=== PATIENT | male | born 1975 | race Hispanic/Latino ===

== ENCOUNTER 2016-12-04 19:38 | Observation (INO) | payer MEDICAID, OTHER ==
[2016-12-04 19:38] VITALS: BMI 24.2
[2016-12-04 20:20] VITALS: O2SAT 97
--- NOTE | 2016-12-04 20:49 | C.PDOC ---
History Of Present Illness A 41 y/o male comes in for ETOH intoxication today. Pt is well known in the ER for multiple visits. Pt denies any physicial complaints, suicidal or homicidal ideation. Time Seen by Provider: 12/04/16 20:48 Chief Complaint (Nursing): Substance Abuse History Per: Patient History/Exam Limitations: no limitations Onset/Duration Of Symptoms: Hrs Current Symptoms Are (Timing): Still Present Suicide/Self Injury Attempted (Context): None Modifying Factor(s): Alcohol Severity: Mild Associated Symptoms: denies: Suicidal Thoughts, Suicidal Plan Involuntary Hold By: None Recent travel outside of the [place]: No Additional History Per: Patient Past Medical History Reviewed: Historical Data, Nursing Documentation, Vital Signs Vital Signs: Last Vital Signs Temp 98.6 F 12/04/16 20:17 Pulse 78 12/04/16 20:17 Resp 20 12/04/16 20:17 BP 130/73 12/04/16 20:17 Pulse Ox 97 12/04/16 20:51 - Medical History PMH: Anxiety, Arthritis (b/l ankle), Depression, Fractures (left leg), Seizures (alcohol related) Denies: HIV, HTN, Chronic Kidney Disease, Sexually Transmitted Disease - [facility] Procedures ALCOHOL DETOXIFICATION (10/30/14) APPLICATION OF SPLINT (03/31/13) CLOSURE SKIN & SUBCUTANEOUS NEC (10/16/14) DETOXIFICATION SERVICES FOR SUBSTANCE ABUSE TREATMENT (08/16/16) INDIV SOCK FOLDER FOR SUBSTANCE ABUSE TREATMENT, PSYCHOEDUCATION (08/16/16) INDIV SOCK FOLDER FOR SUBSTANCE ABUSE, COGNITIVE BEHAVIORAL (08/16/16) INDIVID PSYCHOTHERAP NEC (10/14/14) INJECT/INFUSE NEC (09/30/14) TETANUS TOXOID ADMINIST (10/16/14) Family History: States: Unknown Family Hx - Social History Hx Tobacco Use: Yes Hx Alcohol Use: Yes Hx Substance Use: No - Immunization History Hx Tetanus Toxoid Vaccination: No Hx Influenza Vaccination: No Hx Pneumococcal Vaccination: No Review Of Systems Except As Marked, All Systems Reviewed And Found Negative. Constitutional: Positive for: Other (ETOH intoxication). Negative for: Fever, Chills Gastrointestinal: Negative for: Nausea, Vomiting, Abdominal Pain, Diarrhea Psych: Negative for: Suicidal ideation, Other (Homicidal ideation) Physical Exam - Physical Exam Appears: Non-toxic, No Acute Distress, Other (ETOH intoxicated, (+) AOB. No signs of injury) Skin: Warm, Dry Head: Atraumatic, Normacephalic Eye(s): bilateral: Normal Inspection Oral Mucosa: Moist Throat: Normal, No Exudate Chest: Symmetrical Cardiovascular: Rhythm Regular, No Murmur Respiratory: Normal Breath Sounds, No Rales, No Rhonchi, No Wheezing Gastrointestinal/Abdominal: Soft, No Tenderness Extremity: Normal ROM, No Tenderness, No Pedal Edema, No Deformity Neurological/Psych: Oriented x3, Normal Speech, Normal Cognition, Other (No focal deficit) ED Course And Treatment O2 Sat by Pulse Oximetry: 97 (RA) Pulse Ox Interpretation: Normal Medical Decision Making Medical Decision Making: Impression: 41 y/o male here for ETOH intoxication Plans: ED Obs, reassess ED OBSERVATION Date of observation admission: 12/04/16 Time of observation admission: 20:50 - Observation admission statement Patient is being placed in observation because:: ETOH intoxication - Goals of Observation Goals of observation are:: Sobriety of ETOH Disposition Counseled Patient/Family Regarding: Diagnosis - Disposition Disposition: HOME/ ROUTINE Disposition Time: 05:51 Condition: STABLE - POA Present On Arrival: None - Clinical Impression Clinical Impression: Alcohol intoxication - Scribe Statement The provider has reviewed the documentation as recorded by the Scribe Maxwell arnold All medical record entries made by the Annieibchandra were at my direction and personally dictated by me. I have reviewed the chart and agree that the record accurately reflects my personal performance of the history, physical exam, medical decision making, and the department course for this patient. I have also personally directed, reviewed, and agree with the discharge instructions and disposition.
[2016-12-05 06:27] VITALS: TEMP 98.4
[2016-12-05 06:31] VITALS: BP 143/78; PULSE 90; RESP 20
== END 2016-12-05 05:50 | disposition home or self-care (01) ==
LOC: C.ER 19:38 → C.9OBSV 21:18
PROVIDERS: ADMIT Emergency Medicine; ATTEND Emergency Medicine
DX: F10.120 Alcohol abuse with intoxication, uncomplicated (principal)
CPT/HCPCS: 82948; 99284; G0378

== ENCOUNTER 2017-01-14 23:11 | Emergency (ER) | payer MEDICAID, OTHER ==
[2017-01-14 23:12] VITALS: BMI 25.0
--- NOTE | 2017-01-15 00:03 | C.PDOC ---
History Of Present Illness Patient is a 41 y/o male, homeless, that is brought to the ED for alcohol intoxication. Patient is well known to ED staff for multiple prior visits for intoxication. Patient denies any injury, trauma, or any other physical complaints at this time. Chief Complaint (Nursing): Substance Abuse History Per: Patient History/Exam Limitations: no limitations Onset/Duration Of Symptoms: Gradual Current Symptoms Are (Timing): Still Present Suicide/Self Injury Attempted (Context): None Modifying Factor(s): Alcohol Severity: None Pain Scale Rating Of: 0 Associated Symptoms: denies: Suicidal Thoughts, Suicidal Plan Involuntary Hold By: None Recent travel outside of the [place]: No Additional History Per: Prior Records Past Medical History Reviewed: Historical Data, Nursing Documentation, Vital Signs Vital Signs: Last Vital Signs Temp 97.6 F 01/15/17 05:43 Pulse 69 01/15/17 05:43 Resp 18 01/15/17 05:43 BP 99/58 L 01/15/17 05:43 Pulse Ox 95 01/15/17 05:43 - Medical History PMH: Anxiety, Arthritis (b/l ankle), Depression, Fractures (left leg), Seizures (alcohol related) Denies: HIV, HTN, Chronic Kidney Disease, Sexually Transmitted Disease - [facility] Procedures ALCOHOL DETOXIFICATION (10/30/14) APPLICATION OF SPLINT (03/31/13) CLOSURE SKIN & SUBCUTANEOUS NEC (10/16/14) DETOXIFICATION SERVICES FOR SUBSTANCE ABUSE TREATMENT (08/16/16) INDIV CURBING STONECUTTER FOR SUBSTANCE ABUSE TREATMENT, PSYCHOEDUCATION (08/16/16) INDIV CURBING STONECUTTER FOR SUBSTANCE ABUSE, COGNITIVE BEHAVIORAL (08/16/16) INDIVID PSYCHOTHERAP NEC (10/14/14) INJECT/INFUSE NEC (09/30/14) TETANUS TOXOID ADMINIST (10/16/14) Family History: States: Unknown Family Hx - Social History Hx Tobacco Use: Yes Hx Alcohol Use: Yes Hx Substance Use: No - Immunization History Hx Tetanus Toxoid Vaccination: No Hx Influenza Vaccination: No Hx Pneumococcal Vaccination: No Review Of Systems Except As Marked, All Systems Reviewed And Found Negative. Constitutional: Negative for: Fever, Chills Cardiovascular: Negative for: Chest Pain, Palpitations, Light Headedness Respiratory: Negative for: Cough, Shortness of Breath Gastrointestinal: Negative for: Nausea, Vomiting, Abdominal Pain, Diarrhea Neurological: Negative for: Headache, Dizziness Psych: Negative for: Suicidal ideation Physical Exam - Physical Exam Appears: Non-toxic, No Acute Distress, Unkempt, Other (EtOH on breath) Skin: Normal Color, Warm, Dry Head: Atraumatic, Normacephalic Eye(s): bilateral: Normal Inspection, EOMI Neck: Normal ROM, Supple Chest: Symmetrical Extremity: Normal ROM, No Deformity Extremity: Bilateral: Atraumatic (no signs of injury) Neurological/Psych: Oriented x3, Normal Speech ED Course And Treatment O2 Sat by Pulse Oximetry: 95 (on RA) Pulse Ox Interpretation: Normal ED OBSERVATION Date of observation admission: 01/15/17 Time of observation admission: 00:24 - Observation admission statement Patient is being placed in observation because:: Alcohol intoxication - Goals of Observation Goals of observation are:: Sobriety - Progress Note Progress Note: 01/15/17 00:24 Patient is resting comfortably in bed, no acute distress. 01/15/17 05:07 Patient resting comfortably, denies any complaints. Disposition - Disposition Referrals: [facility] at [facility] [Outside] Disposition: HOME/ ROUTINE Disposition Time: 06:00 Condition: STABLE Instructions: Alcohol Intoxication (GEN), Abuse of Alcohol (ED) - Clinical Impression Clinical Impression: Alcohol abuse with intoxication - Scribe Statement The provider has reviewed the documentation as recorded by the Scribe Danielle Centeno All medical record entries made by the Scribe were at my direction and personally dictated by me. I have reviewed the chart and agree that the record accurately reflects my personal performance of the history, physical exam, medical decision making, and the department course for this patient. I have also personally directed, reviewed, and agree with the discharge instructions and disposition.
[2017-01-15 02:36] VITALS: RESP 18
[2017-01-15 05:07] VITALS: O2SAT 95
[2017-01-15 05:50] VITALS: BP 99/58; PULSE 69; TEMP 97.6
== END 2017-01-15 06:31 | disposition home or self-care (01) ==
LOC: C.ER 23:11
DX: F10.129 Alcohol abuse with intoxication, unspecified (principal); Y90.9 Presence of alcohol in blood, level not specified; Z59.0 Homelessness

== ENCOUNTER 2017-06-01 04:06 | Emergency (ER) | payer MEDICAID, OTHER ==
[2017-06-01 04:06] VITALS: BMI 25.0
[2017-06-01 04:52] VITALS: BP 97/64; PULSE 130; TEMP 98.9; O2SAT 94
--- NOTE | 2017-06-01 05:12 | C.PDOC ---
History Of Present Illness 41 year old male brought in by EMS after being found intoxicated in public. Patient is well known to the ER and has had many prior visits with the same presentation. Denies physical complaints at this time. Chief Complaint (Nursing): Medical Clearance History Per: Patient History/Exam Limitations: no limitations Onset/Duration Of Symptoms: Hrs Current Symptoms Are (Timing): Still Present Recent travel outside of the [place]: No Past Medical History Reviewed: Historical Data, Nursing Documentation, Vital Signs Vital Signs: Last Vital Signs Temp 98.9 F 06/01/17 04:51 Pulse 130 H 06/01/17 04:51 Resp 16 06/01/17 04:51 BP 97/64 L 06/01/17 04:51 Pulse Ox 94 L 06/01/17 06:01 - Medical History PMH: Anxiety, Arthritis (b/l ankle), Depression, Fractures (left leg), Seizures (alcohol related) - [facility] Procedures ALCOHOL DETOXIFICATION (10/30/14) APPLICATION OF SPLINT (03/31/13) CLOSURE SKIN & SUBCUTANEOUS NEC (10/16/14) DETOXIFICATION SERVICES FOR SUBSTANCE ABUSE TREATMENT (08/16/16) INDIV RESPIRATORY THERAPIST FOR SUBSTANCE ABUSE TREATMENT, PSYCHOEDUCATION (08/16/16) INDIV RESPIRATORY THERAPIST FOR SUBSTANCE ABUSE, COGNITIVE BEHAVIORAL (08/16/16) INDIVID PSYCHOTHERAP NEC (10/14/14) INJECT/INFUSE NEC (09/30/14) TETANUS TOXOID ADMINIST (10/16/14) Family History: States: Unknown Family Hx - Social History Hx Tobacco Use: Yes Hx Alcohol Use: Yes Hx Substance Use: No - Immunization History Hx Tetanus Toxoid Vaccination: No Hx Influenza Vaccination: No Hx Pneumococcal Vaccination: No Review Of Systems Constitutional: Negative for: Fever, Chills Gastrointestinal: Negative for: Nausea, Vomiting, Diarrhea Physical Exam - Physical Exam Appears: Non-toxic, No Acute Distress, Other (ETOH on breath) Skin: Normal Color, Warm, Dry Head: Atraumatic, Normacephalic Eye(s): bilateral: Normal Inspection Oral Mucosa: Moist Chest: Symmetrical Cardiovascular: Rhythm Regular Respiratory: Normal Breath Sounds, No Rales, No Rhonchi, No Wheezing Gastrointestinal/Abdominal: Soft, No Tenderness Neurological/Psych: Oriented x3, Normal Speech, Other (No focal deficits) Gait: Steady ED Course And Treatment O2 Sat by Pulse Oximetry: 94 Progress Note: On reevaluation, patient is alert, conscious, oriented x3, and steady of gait; cleared for discharge. Disposition Counseled Patient/Family Regarding: Diagnosis - Disposition Referrals: [facility] at [facility] [Outside] Disposition Time: 06:11 Condition: STABLE Instructions: Abuse of Alcohol (ED) Forms: [employer] ([place]i) - POA Present On Arrival: None - Clinical Impression Clinical Impression: Alcohol intoxication - Scribe Statement The provider has reviewed the documentation as recorded by the Scribchandra Ruiz All medical record entries made by the Scribe were at my direction and personally dictated by me. I have reviewed the chart and agree that the record accurately reflects my personal performance of the history, physical exam, medical decision making, and the department course for this patient. I have also personally directed, reviewed, and agree with the discharge instructions and disposition.
[2017-06-01 07:33] VITALS: RESP 18
== END 2017-06-01 07:26 | disposition home or self-care (01) ==
LOC: C.ER 04:06
DX: F10.129 Alcohol abuse with intoxication, unspecified (principal); Y90.9 Presence of alcohol in blood, level not specified

== ENCOUNTER 2017-06-12 13:29 | Emergency (ER) | payer OTHER ==
[2017-06-12 13:30] VITALS: BMI 25.0
[2017-06-12 15:47] VITALS: BP 101/68; PULSE 125; RESP 18; TEMP 98.9; O2SAT 97
--- NOTE | 2017-06-12 16:15 | C.PDOC ---
History Of Present Illness Pt was BIBSANTY because he was found sleeping outside. Time Seen by Provider: 06/12/17 13:41 Chief Complaint (Nursing): Medical Clearance History Per: Patient, EMS Onset/Duration Of Symptoms: Unknown Current Symptoms Are (Timing): Still Present Severity: Moderate Additional History Per: Prior Records Past Medical History Reviewed: Historical Data, Nursing Documentation, Vital Signs Vital Signs: Last Vital Signs Temp 98.9 F 06/12/17 15:47 Pulse 125 H 06/12/17 15:47 Resp 18 06/12/17 15:47 BP 101/68 06/12/17 15:47 Pulse Ox 97 06/12/17 15:47 - Medical History PMH: Anxiety, Arthritis (b/l ankle), Depression, Fractures (left leg), Seizures (alcohol related) - [facility] Procedures ALCOHOL DETOXIFICATION (10/30/14) APPLICATION OF SPLINT (03/31/13) CLOSURE SKIN & SUBCUTANEOUS NEC (10/16/14) DETOXIFICATION SERVICES FOR SUBSTANCE ABUSE TREATMENT (08/16/16) INDIV WOOD BOAT BUILDER SUPERVISOR FOR SUBSTANCE ABUSE TREATMENT, PSYCHOEDUCATION (08/16/16) INDIV WOOD BOAT BUILDER SUPERVISOR FOR SUBSTANCE ABUSE, COGNITIVE BEHAVIORAL (08/16/16) INDIVID PSYCHOTHERAP NEC (10/14/14) INJECT/INFUSE NEC (09/30/14) TETANUS TOXOID ADMINIST (10/16/14) Family History: States: Unknown Family Hx - Social History Hx Tobacco Use: Yes Hx Alcohol Use: Yes Hx Substance Use: No - Immunization History Hx Tetanus Toxoid Vaccination: No Hx Influenza Vaccination: No Hx Pneumococcal Vaccination: No Review Of Systems Constitutional: Negative for: Fever Cardiovascular: Negative for: Chest Pain Respiratory: Negative for: Shortness of Breath Gastrointestinal: Negative for: Vomiting, Abdominal Pain Musculoskeletal: Negative for: Neck Pain Neurological: Negative for: Weakness Physical Exam - Physical Exam Appears: Non-toxic, No Acute Distress, Unkempt Skin: Normal Color, Warm, Dry Head: Atraumatic, Normacephalic Eye(s): bilateral: PERRL, EOMI Neck: Normal ROM, No Midline Cervical Tenderness, No Step Off Deformity, Supple Chest: Symmetrical, No Deformity Cardiovascular: Rhythm Regular Respiratory: Normal Breath Sounds, No Accessory Muscle Use Gastrointestinal/Abdominal: Soft, No Tenderness Back: No CVA Tenderness Extremity: Normal ROM Neurological/Psych: Oriented x3, Normal Motor, Normal Sensation Gait: Steady ED Course And Treatment O2 Sat by Pulse Oximetry: 97 Pulse Ox Interpretation: Normal Progress Note: Pt took a hot shower in the ED and ate a sandwich. Pt will be given a list of local shelters. Reassessment Condition: Improved Disposition Counseled Patient/Family Regarding: Diagnosis, Need For Followup - Disposition Referrals: [facility] [Outside] Disposition: HOME/ ROUTINE Disposition Time: 16:15 Condition: IMPROVED Additional Instructions: Stay at a homeless half-way. Follow up in the clinic. Return to the ER if you develop worsening of symptoms or if you have any other concerns. Forms: General Discharge Instructions - Clinical Impression Clinical Impression: Homelessness
== END 2017-06-12 17:09 | disposition home or self-care (01) ==
LOC: C.ER 13:29
DX: Z59.0 Homelessness (principal)

== ENCOUNTER 2017-06-17 00:41 | Inpatient (IN) | payer OTHER ==
[2017-06-17 00:41] VITALS: BMI 25.0
[2017-06-17 03:01] LABS: ALB/GLOB RATIO 0.9 (1.0-2.1); ALCOHOL SERUM < 10 mg/dl (0-10); ALKALINE PHOSPHATASE 119 U/L (38-126); ALT/SGPT 45 U/L (21-72); AST/SGOT 53 U/L (17-59); BILIRUBIN,TOTAL 0.6 mg/dL (0.2-1.3); BLOOD UREA NITROGEN 3 mg/dL (9-20); CALCIUM 8.6 mg/dl (8.6-10.4); CARBON DIOXIDE 28 mmol/L (22-30); CHLORIDE 89 mmol/L (98-107); GFR AFRICAN-AMERICAN > 60; GLUCOSE,RANDOM 80 mg/dL (75-110); SODIUM 123 mmol/L (132-148); TOTAL PROTEIN 7.8 g/dL (6.3-8.3)
[2017-06-17 03:13] LABS: BASO # 0.2 K/uL (0.0-0.2); BASO % 1.7 % (0.0-2.0); EOS # 0.1 K/uL (0.0-0.7); EOS % 0.4 % (0.0-4.0); HEMATOCRIT 38.8 % (35.0-51.0); LYMPH # 1.2 K/uL (1.0-4.3); LYMPH % 8.1 % (20.0-40.0); MEAN CELL VOLUME 94.5 fL (80.0-94.0); MEAN CORPUSCULAR HEMOGLOBIN 34.4 pg (27.0-31.0); MEAN CORPUSCULAR HGB CONC 36.4 g/dL (33.0-37.0); MEAN PLATELET VOLUME 6.8 fL (7.2-11.7); MONO # 0.8 K/uL (0.0-0.8); MONO % 5.7 % (0.0-10.0); RED CELL DISTRIBUTION WIDTH 12.4 % (11.5-14.5)
[2017-06-17] MEDS ORDERED: Sodium Chloride 0.9% 1,000 ML IV ONE (03:15)
--- NOTE | 2017-06-17 03:23 | C.PDOC ---
History Of Present Illness 42 year old homeless male brought in by EMS for ETOH abuse. Patient denies complaints at this time. Time Seen by Provider: 06/17/17 01:38 Chief Complaint (Nursing): Substance Abuse History Per: Patient History/Exam Limitations: no limitations Onset/Duration Of Symptoms: Hrs Current Symptoms Are (Timing): Still Present Suicide/Self Injury Attempted (Context): None Modifying Factor(s): Alcohol Involuntary Hold By: None Recent travel outside of the [place]: No Past Medical History Reviewed: Historical Data, Nursing Documentation, Vital Signs Vital Signs: Last Vital Signs Temp 98 F 06/17/17 04:50 Pulse 97 H 06/17/17 04:50 Resp 20 06/17/17 04:50 BP 130/70 06/17/17 04:50 Pulse Ox 98 06/17/17 04:50 - Medical History PMH: Anxiety, Arthritis (b/l ankle), Depression, Fractures (left leg), Seizures (alcohol related) - [facility] Procedures ALCOHOL DETOXIFICATION (10/30/14) APPLICATION OF SPLINT (03/31/13) CLOSURE SKIN & SUBCUTANEOUS NEC (10/16/14) DETOXIFICATION SERVICES FOR SUBSTANCE ABUSE TREATMENT (08/16/16) INDIV MISSILE FACILITIES REPAIRER FOR SUBSTANCE ABUSE TREATMENT, PSYCHOEDUCATION (08/16/16) INDIV MISSILE FACILITIES REPAIRER FOR SUBSTANCE ABUSE, COGNITIVE BEHAVIORAL (08/16/16) INDIVID PSYCHOTHERAP NEC (10/14/14) INJECT/INFUSE NEC (09/30/14) TETANUS TOXOID ADMINIST (10/16/14) Family History: States: Unknown Family Hx - Social History Hx Tobacco Use: Yes Hx Alcohol Use: Yes Hx Substance Use: No - Immunization History Hx Tetanus Toxoid Vaccination: No Hx Influenza Vaccination: No Hx Pneumococcal Vaccination: No Review Of Systems Constitutional: Negative for: Fever, Chills Gastrointestinal: Negative for: Nausea, Vomiting, Abdominal Pain Physical Exam - Physical Exam Appears: Non-toxic, Other (Disheveled, poor hygiene ) Skin: Warm, Dry Head: Atraumatic, Normacephalic Eye(s): bilateral: Normal Inspection Oral Mucosa: Moist Chest: Symmetrical, No Tenderness Cardiovascular: Rhythm Regular Respiratory: Normal Breath Sounds, No Rales, No Rhonchi, No Wheezing Gastrointestinal/Abdominal: Soft, No Tenderness Extremity: No Calf Tenderness, No Swelling, Other (Large area of erythema with positive warmth and old healed abrasions to posterior bilateral thighs from gluteal folds to popliteal area. Scar and chronic discoloration to left ankle, s /p old fracture) Pulses: Left Dorsalis Pedis: Normal, Right Dorsalis Pedis: Normal Neurological/Psych: Oriented x3, Normal Speech, Normal Motor, Normal Sensation Gait: Steady ED Course And Treatment - Laboratory Results Result Diagrams: 06/17/17 02:44 06/17/17 02:44 O2 Sat by Pulse Oximetry: 98 (room air) Pulse Ox Interpretation: Normal Progress Note: Blood work ordered, results showed sodium levels of 123 and wbc of 14.5. Patient started on IV fluids and IV antibiotics. Discussed with Dr. Dallas, hospitalist distribution tech, who will admit patient. Disposition - Disposition Disposition: HOSPITALIZED - PA / CLIENT TECHNOLOGIES ANALYST / Resident Statement MD/DO has reviewed & agrees with the documentation as recorded. - Scribe Statement The provider has reviewed the documentation as recorded by the Scribe Ricky Ruiz All medical record entries made by the Scribe were at my direction and personally dictated by me. I have reviewed the chart and agree that the record accurately reflects my personal performance of the history, physical exam, medical decision making, and the department course for this patient. I have also personally directed, reviewed, and agree with the discharge instructions and disposition.
[2017-06-17 03:26] LABS: PLATELET COUNT 510 K/uL (130-400); WHITE BLOOD COUNT 14.5 K/uL (4.8-10.8)
[2017-06-17 03:27] LABS: BASOPHIL 1 % (0-2); EOSINOPHIL 1 % (0-4); NEUTROPHIL 83 % (50-75); TOTAL CELLS COUNTED 100
[2017-06-17] MEDS ORDERED: Sodium Chloride 0.9% 1,000 ML IV STA (03:31)
[2017-06-17] MEDS ORDERED: Piperacillin/Tazobact 3.375 gm 100 ML IV STA (03:34)
[2017-06-17] MEDS ORDERED: Vancomycin 1 gm/NS 200 ml 1 GM/200 ML BAG IVPB STA (03:47)
[2017-06-17] MEDS ORDERED: Sodium Chloride 0.9% 1,000 ML ONE (03:49)
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
[2017-06-17] MEDS: Sodium Chloride 0.9% 1,000 ML IV SCH ×3 (06:46→22:18)
--- NOTE | 2017-06-17 07:04 | CP.PCM.PN ---
<Kristin Werner - Last Filed: 06/17/17 15:34> Subjective - Date & Time of Evaluation Date of Evaluation: 06/17/17 Time of Evaluation: 07:04 - Subjective Subjective: Medicine Progress Note for Dr. Morales Patient was seen and examined at bedside in no acute distress. Patient reports having "pain all over his body". Patient denies having shortness of breath, abdominal pain, nausea, vomiting, fevers. Patient states he is no hallucinating or having tremors. Patient is slightly agitated and does not want to be questioned. Objective - Vital Signs/Intake and Output Vital Signs (last 24 hours): Temp Pulse Resp BP Pulse Ox 97.5 F L 109 H 20 115/67 98 06/17/17 05:20 06/17/17 05:20 06/17/17 05:20 06/17/17 05:20 06/17/17 05:29 - Medications Medications: Current Medications Acetaminophen (Tylenol 325mg Tab) 650 mg PO Q6 PRN PRN Reason: Fever >100.4 F Chlordiazepoxide (Librium) 15 mg PO Q8 PRN PRN Reason: Symptoms of alcohol withdrawl Enoxaparin Sodium (Lovenox) 40 mg SC DAILY [facility] Folic Acid (Folic Acid) 1 mg PO DAILY [facility] Sodium Chloride (Sodium Chloride 0.9%) 1,000 mls @ 200 mls/hr IV .Q5H STA Stop: 06/17/17 08:30 Last Admin: 06/17/17 03:56 Dose: 200 mls/hr Ceftriaxone Sodium 1 gm/ (Sodium Chloride) 100 mls @ 200 mls/hr IVPB Q12H [facility] Last Admin: 06/17/17 07:02 Dose: 200 mls/hr Doxycycline Hyclate 100 mg/ (Sodium Chloride) 100 mls @ 100 mls/hr IVPB Q12H [facility] Sodium Chloride (Sodium Chloride 0.9%) 1,000 mls @ 125 mls/hr IV .Q8H [facility] Last Admin: 06/17/17 06:46 Dose: Not Given Lorazepam (Ativan) 1 mg PO Q4 PRN PRN Reason: Anxiety Multivitamins (Hexavitamin) 1 tab PO DAILY [facility] Pantoprazole Sodium (Protonix Ec Tab) 20 mg PO DAILY [facility] Phenytoin Sodium (Dilantin) 100 mg PO TID [facility] Thiamine HCl (Vitamin B1 Tab) 50 mg PO DAILY PEMA - Labs Labs: 06/17/17 02:44 06/17/17 02:44 - Head Exam Head Exam: ATRAUMATIC, NORMAL INSPECTION - Eye Exam Eye Exam: EOMI, Normal appearance - ENT Exam ENT Exam: Mucous Membranes Moist - Respiratory Exam Respiratory Exam: Decreased Breath Sounds, NORMAL BREATHING PATTERN. absent: Rales, Rhonchi, Wheezes, Respiratory Distress - Cardiovascular Exam Cardiovascular Exam: REGULAR RHYTHM, +S1, +S2 - GI/Abdominal Exam GI & Abdominal Exam: Soft, Normal Bowel Sounds. absent: Distended, Firm, Tenderness - Extremities Exam Extremities Exam: absent: Calf Tenderness, Normal Inspection, Pedal Edema Additional comments: Chronic skin color changes and contact dermatitis from gluteal region extending down to knees bilaterally; right lateral hip and thigh- abrasion, erythema; , erythema and feces noted in intergluteal cleft; scabs bilateral ankles; poor feet and nail hygiene - Neurological Exam Neurological Exam: Alert, Awake - Psychiatric Exam Psychiatric exam: Agitated - Skin Skin Exam: Dry, Intact, Warm. absent: Normal Color Assessment and Plan (1) Dermatitis Assessment & Plan: Likley contact dermatitis over buttocks and lower extremities bilaterally * May progress to cellulitis due to abrasions and poor hygiene * Continue Rocephin and Doxycycline * Continue proper hygiene and skin care * Follow up stool studies. [patient was soiled with urine/feces in ED] Status: Acute (2) Hyponatremia Assessment & Plan: Likely secondary to alcohol abuse * Continue IV fluids; will monitor on morning labs. If Na continues to trend down, will discontinue IV fluids * Encourage patient to eat to improve electrolytes and malnutrition. * Follow up serum and urine osmolality Status: Acute (3) Alcoholism Assessment & Plan: Patient has a history of alcohol abuse. * Alcohol quant: <10 * No signs of withdrawal. If patient develops symptoms, Librium PRN is ordered. Status: Acute (4) Tobacco abuse Assessment & Plan: Continue nicoderm patch Status: Acute (5) Seizure disorder Assessment & Plan: Patient has a history of seizures, however, does not take medications. May be secondary to alcohol abuse Seizure precautions Status: Acute (6) Prophylactic measure Assessment & Plan: Lovenox 40mg SC Protonix 20mg PO daily Seizure precautions Status: Acute <Selvin Morales - Last Filed: 06/17/17 16:54> Objective - Vital Signs/Intake and Output Vital Signs (last 24 hours): Temp Pulse Resp BP Pulse Ox 99 F 108 H 20 108/68 98 06/17/17 15:00 06/17/17 15:00 06/17/17 15:00 06/17/17 15:00 06/17/17 15:00 Intake and Output: 06/17/17 06/17/17 06:59 18:59 Intake Total 800 Output Total 850 Balance -50 - Medications Medications: Current Medications Acetaminophen (Tylenol 325mg Tab) 650 mg PO Q6 PRN PRN Reason: Fever >100.4 F Chlordiazepoxide (Librium) 15 mg PO Q8 PRN PRN Reason: Symptoms of alcohol withdrawl Enoxaparin Sodium (Lovenox) 40 mg SC DAILY [facility] Last Admin: 06/17/17 09:44 Dose: 40 mg Folic Acid (Folic Acid) 1 mg PO DAILY [facility] Last Admin: 06/17/17 09:45 Dose: 1 mg Ceftriaxone Sodium 1 gm/ (Sodium Chloride) 100 mls @ 200 mls/hr IVPB Q12H [facility] Last Admin: 06/17/17 07:02 Dose: 200 mls/hr Doxycycline Hyclate 100 mg/ (Sodium Chloride) 100 mls @ 100 mls/hr IVPB Q12H [facility] Last Admin: 06/17/17 07:54 Dose: 100 mls/hr Sodium Chloride (Sodium Chloride 0.9%) 1,000 mls @ 125 mls/hr IV .Q8H [facility] Last Admin: 06/17/17 14:11 Dose: 125 mls/hr Lorazepam (Ativan) 1 mg PO Q4 PRN PRN Reason: Anxiety Multivitamins (Hexavitamin) 1 tab PO DAILY [facility] Last Admin: 06/17/17 09:45 Dose: 1 tab Pantoprazole Sodium (Protonix Ec Tab) 20 mg PO DAILY [facility] Last Admin: 06/17/17 10:59 Dose: 20 mg Phenytoin Sodium (Dilantin) 100 mg PO TID [facility] Last Admin: 06/17/17 13:52 Dose: 100 mg Thiamine HCl (Vitamin B1 Tab) 50 mg PO DAILY [facility] Last Admin: 06/17/17 09:46 Dose: 50 mg - Labs Labs: 06/17/17 02:44 06/17/17 02:44 Attending/Attestation - Attestation I have personally seen and examined this patient.: Yes I have fully participated in the care of the patient.: Yes I have reviewed all pertinent clinical information, including history, physical exam and plan: Yes Notes (Text): Medical attending: Patient was was seen and examined by me as well, agrees the above note by medical coding instructor. The patient was sleeping when we came and saw him. From my discussion with the medical residents he was somewhat agitated when they came earlier to talk and examine the patient. By the time we rounded with the medical residents he was not agitated and was cooperative during our exam It appears that he's been homeless for quite some time he is very disheveled appearance. He is also extremely emaciated as well. I had him turn around and we examined his sacral area as well as his femoral areas. He does not have any open wounds. There is certainly a lot of erythema however it does not appear to be a cellulitis picture more of a contact dermatitis From what I'm being told when he first was brought to the emergency room and he was examined he was seen to have a lot of urine and feces in this area. It's possible that he has not been cleaning. My other thought was could the skin areas that we are looking at represents some type of frostbite - however I do not think that's the case since when I inspected his fingers and toes he does not have any areas look like frostbite and normally with frostbite it should affected digits heavily. This being said he does appear to have some fungal/onychomycosis of his fingernails and toes. The previous nights medical team put the patient on antibiotics will continue this for the time being. We'll monitor his vital signs as well as temperature and also his serum white blood cell counts. If these remain stable we'll consider stopping antibiotics later on Also his sodium level is 123 this is probably a reflection of the patient's large alcohol intake as well as poor malnutrition. He was placed on normal saline, will get a follow his sodium to see how this does. It should improve with him eating we encouraged him to eat. thank you Selvin Morales
[2017-06-17] MEDS ORDERED: Pneumococcal 23-Valent Vaccine IM ONE (07:28)
[2017-06-17] MEDS: Enoxaparin 40 mg Syringe SC SCH (09:44)
[2017-06-17] MEDS: Multiple Vitamins Tab PO SCH (09:45)
[2017-06-17] MEDS: Pantoprazole 20 mg EC Tab PO SCH (10:59)
[2017-06-17] MEDS ORDERED: Piperacillin/Tazobact 3.375 GM in Sodium Chloride 100 ML IVPB SCH (12:15)
[2017-06-17 16:08] VITALS: RESP 20
[2017-06-17] MEDS ORDERED: Vancomycin 1 gm/NS 200 ml 1 GM/200 ML BAG IVPB SCH (16:40)
[2017-06-18] MEDS: Sodium Chloride 0.9% 1,000 ML IV SCH ×2 (06:58→12:03)
--- NOTE | 2017-06-18 07:01 | CP.PCM.PN ---
<Kristin Werner - Last Filed: 06/18/17 10:49> Subjective - Date & Time of Evaluation Date of Evaluation: 06/18/17 Time of Evaluation: 07:01 - Subjective Subjective: Medicine Progress Note for Dr. Morales Patient was seen and examined at bedside. Patient was agitated and did not want to answer questions or cooperate. He reports he still has leg pain and states he tried walking to the window but was unable to due to pain. Patient denies having shortness of breath, abdominal pain, nausea, vomiting, fevers. Patient states he is no hallucinating or having tremors. Patient was later revisited with attending, Dr. Morales, and was pleasant and in no acute distress. He reports feeling better, however, still has pain in his legs. Objective - Vital Signs/Intake and Output Vital Signs (last 24 hours): Temp Pulse Resp BP Pulse Ox 99 F 93 H 20 110/64 96 06/18/17 00:00 06/18/17 00:00 06/18/17 00:00 06/18/17 00:00 06/18/17 00:00 Intake and Output: 06/18/17 06/18/17 06:59 18:59 Intake Total 1800 Balance 1800 - Medications Medications: Current Medications Acetaminophen (Tylenol 325mg Tab) 650 mg PO Q6 PRN PRN Reason: Fever >100.4 F Chlordiazepoxide (Librium) 15 mg PO Q8 PRN PRN Reason: Symptoms of alcohol withdrawl Enoxaparin Sodium (Lovenox) 40 mg SC DAILY [facility] Last Admin: 06/17/17 09:44 Dose: 40 mg Folic Acid (Folic Acid) 1 mg PO DAILY [facility] Last Admin: 06/17/17 09:45 Dose: 1 mg Ceftriaxone Sodium 1 gm/ (Sodium Chloride) 100 mls @ 200 mls/hr IVPB Q12H [facility] Last Admin: 06/18/17 06:47 Dose: 200 mls/hr Doxycycline Hyclate 100 mg/ (Sodium Chloride) 100 mls @ 100 mls/hr IVPB Q12H [facility] Last Admin: 06/17/17 19:05 Dose: 100 mls/hr Sodium Chloride (Sodium Chloride 0.9%) 1,000 mls @ 125 mls/hr IV .Q8H [facility] Last Admin: 06/18/17 06:58 Dose: 125 mls/hr Lorazepam (Ativan) 1 mg PO Q4 PRN PRN Reason: Anxiety Multivitamins (Hexavitamin) 1 tab PO DAILY [facility] Last Admin: 06/17/17 09:45 Dose: 1 tab Pantoprazole Sodium (Protonix Ec Tab) 20 mg PO DAILY [facility] Last Admin: 06/17/17 10:59 Dose: 20 mg Phenytoin Sodium (Dilantin) 100 mg PO TID [facility] Last Admin: 06/17/17 17:41 Dose: 100 mg Thiamine HCl (Vitamin B1 Tab) 50 mg PO DAILY [facility] Last Admin: 06/17/17 09:46 Dose: 50 mg - Labs Labs: 06/17/17 02:44 06/17/17 02:44 - Additional Findings Additional findings: - Head Exam Head Exam: ATRAUMATIC, NORMAL INSPECTION - Eye Exam Eye Exam: EOMI, Normal appearance - ENT Exam ENT Exam: Mucous Membranes Moist - Respiratory Exam Respiratory Exam: Decreased Breath Sounds, NORMAL BREATHING PATTERN. absent: Rales, Rhonchi, Wheezes, Respiratory Distress - Cardiovascular Exam Cardiovascular Exam: REGULAR RHYTHM, +S1, +S2 - GI/Abdominal Exam GI & Abdominal Exam: Soft, Normal Bowel Sounds. absent: Distended, Firm, Tenderness - Extremities Exam Extremities Exam: absent: Calf Tenderness, Normal Inspection, Pedal Edema Additional comments: Chronic skin color changes and contact dermatitis from gluteal region extending down to knees bilaterally; right lateral hip and thigh- abrasion, erythema; , erythema and feces noted in intergluteal cleft; scabs bilateral ankles; poor feet and nail hygiene - Neurological Exam Neurological Exam: Alert, Awake - Psychiatric Exam Psychiatric exam: Agitated - Skin Skin Exam: Dry, Intact, Warm. absent: Normal Color Assessment and Plan (1) Dermatitis Status: Acute (2) Hyponatremia Status: Acute (3) Alcoholism Status: Acute (4) Tobacco abuse Status: Acute (5) Seizure disorder Status: Acute (6) Leg pain, bilateral Status: Acute (7) Prophylactic measure Status: Acute - Assessment and Plan (Free Text) Plan: Assessment and Plan (1) Dermatitis Assessment & Plan: Kia contact dermatitis over buttocks and lower extremities bilaterally * May progress to cellulitis due to abrasions and poor hygiene * Continue Rocephin and Doxycycline * Continue proper hygiene and skin care * Follow up stool studies. [patient was soiled with urine/feces in ED] Status: Acute (2) Hyponatremia Assessment & Plan: Likely secondary to alcohol abuse * Improving--> Na 131 on 06/18 (123 at admission) * Continue IV fluids; decreased rate from 125mls/hr to 75mls/hr on 06/18 * Will monitor on morning labs. If Na continues to trend down, will discontinue IV fluids * Encourage patient to eat to improve electrolytes and malnutrition. * Urine random sodium 15 * Urine osmolality 142 Status: Acute (3) Alcoholism Assessment & Plan: Patient has a history of alcohol abuse. * Alcohol quant: <10 * No signs of withdrawal. If patient develops symptoms, Librium PRN is ordered. Status: Acute (4) Tobacco abuse Assessment & Plan: Continue nicoderm patch Status: Acute (5) Seizure disorder Assessment & Plan: Patient has a history of seizures, however, does not take medications. May be secondary to alcohol abuse Seizure precautions Status: Acute (6) Leg pain, bilateral Assessment & Plan: Likely secondary to contact dermatitis from soiling self and sitting all day ( as reported by patient). * Venous dopplers B/L: f/u results * Hip Xray B/L: f/u results * Knee Xray B/L: f/u results * PT/OT, OOB (7) Prophylactic measure Assessment & Plan: Lovenox 40mg SC Protonix 20mg PO daily Seizure precautions PT/OT High protein regular diet <Selvin Morales H - Last Filed: 06/18/17 11:42> Objective - Vital Signs/Intake and Output Vital Signs (last 24 hours): Temp Pulse Resp BP Pulse Ox 98 F 93 H 20 100/67 97 06/18/17 07:57 06/18/17 07:57 06/18/17 07:57 06/18/17 07:57 06/18/17 07:57 Intake and Output: 06/18/17 06/18/17 06:59 18:59 Intake Total 3100 Output Total 700 Balance 2400 - Medications Medications: Current Medications Acetaminophen (Tylenol 325mg Tab) 650 mg PO Q6 PRN PRN Reason: Fever >100.4 F Chlordiazepoxide (Librium) 15 mg PO Q8 PRN PRN Reason: Symptoms of alcohol withdrawl Enoxaparin Sodium (Lovenox) 40 mg SC DAILY [facility] Last Admin: 06/17/17 09:44 Dose: 40 mg Folic Acid (Folic Acid) 1 mg PO DAILY [facility] Last Admin: 06/18/17 09:12 Dose: 1 mg Ceftriaxone Sodium 1 gm/ (Sodium Chloride) 100 mls @ 200 mls/hr IVPB Q12H [facility] Last Admin: 06/18/17 06:47 Dose: 200 mls/hr Doxycycline Hyclate 100 mg/ (Sodium Chloride) 100 mls @ 100 mls/hr IVPB Q12H [facility] Last Admin: 06/18/17 08:00 Dose: 100 mls/hr Sodium Chloride (Sodium Chloride 0.9%) 1,000 mls @ 75 mls/hr IV .[id number] [facility] Lorazepam (Ativan) 1 mg PO Q4 PRN PRN Reason: Anxiety Multivitamins (Hexavitamin) 1 tab PO DAILY [facility] Last Admin: 06/18/17 09:13 Dose: 1 tab Nicotine (Nicoderm Cq) 1 patch TD DAILY [facility] Pantoprazole Sodium (Protonix Ec Tab) 20 mg PO DAILY [facility] Last Admin: 06/18/17 09:13 Dose: 20 mg Phenytoin Sodium (Dilantin) 100 mg PO TID [facility] Last Admin: 06/18/17 09:12 Dose: 100 mg Thiamine HCl (Vitamin B1 Tab) 50 mg PO DAILY [facility] Last Admin: 06/18/17 09:13 Dose: 50 mg - Labs Labs: 06/18/17 07:13 06/18/17 07:13 Attending/Attestation - Attestation I have personally seen and examined this patient.: Yes I have fully participated in the care of the patient.: Yes I have reviewed all pertinent clinical information, including history, physical exam and plan: Yes Notes (Text): 06/18/17 11:42 Medical attending: I reviewed the above note by the pediatrician/medical doctor, I also came and examined the patient with the resident and agree with the above. The patient earlier this morning was very agitated and noncooperative when he was seen by the medical residents. Later on in the morning when I came to around the residence he was no longer agitated and he was cooperative. He reports that he has a lot of weakness difficulty ambulating to the bathroom. We'll try placing an bedside commode. Because of the weakness were also consult PT. We'll also x-ray imaging of the hip and knees With regards to his low-sodium this is come up nicely, work is slow the rate of intravenous fluids now. We've also encouraged him to continue eating as well. He states that he's been having a good appetite Thank you very much Selvin Morales
[2017-06-18 07:59] LABS: ALB/GLOB RATIO 1.2 (1.0-2.1); ALKALINE PHOSPHATASE 80 U/L (38-126); ALT/SGPT 34 U/L (21-72); AST/SGOT 43 U/L (17-59); BILIRUBIN,TOTAL 0.5 mg/dL (0.2-1.3); BLOOD UREA NITROGEN 5 mg/dL (9-20); CALCIUM 7.8 mg/dl (8.6-10.4); CARBON DIOXIDE 27 mmol/L (22-30); CHLORIDE 101 mmol/L (98-107); GFR AFRICAN-AMERICAN > 60; GLUCOSE,RANDOM 85 mg/dL (75-110); POTASSIUM 3.8 mmol/L (3.6-5.2); SODIUM 131 mmol/L (132-148); TOTAL PROTEIN 5.4 g/dL (6.3-8.3)
[2017-06-18 08:10] LABS: BASO # 0.1 K/uL (0.0-0.2); BASO % 1.2 % (0.0-2.0); EOS # 0.1 K/uL (0.0-0.7); LYMPH # 1.8 K/uL (1.0-4.3); LYMPH % 26.8 % (20.0-40.0); MEAN CORPUSCULAR HEMOGLOBIN 33.8 pg (27.0-31.0); MEAN CORPUSCULAR HGB CONC 34.4 g/dL (33.0-37.0); MEAN PLATELET VOLUME 7.1 fL (7.2-11.7); MONO # 0.8 K/uL (0.0-0.8); MONO % 11.7 % (0.0-10.0); NRBC % 0.1 % (0.0-2.0); RED CELL DISTRIBUTION WIDTH 12.7 % (11.5-14.5)
[2017-06-18 08:13] LABS: MEAN CELL VOLUME 98.2 fL (80.0-94.0); WHITE BLOOD COUNT 6.7 K/uL (4.8-10.8)
[2017-06-18] MEDS: Multiple Vitamins Tab PO SCH (09:13)
[2017-06-18] MEDS: Pantoprazole 20 mg EC Tab PO SCH (09:13)
[2017-06-18] MEDS: Enoxaparin 40 mg Syringe SC SCH (11:01)
[2017-06-19] MEDS: Sodium Chloride 0.9% 1,000 ML IV SCH ×3 (00:15→13:25)
--- NOTE | 2017-06-19 06:58 | CP.PCM.PN ---
Subjective - Date & Time of Evaluation Date of Evaluation: 06/19/17 Time of Evaluation: 06:58 Objective - Vital Signs/Intake and Output Vital Signs (last 24 hours): Temp Pulse Resp BP Pulse Ox 98.7 F 91 H 20 121/67 98 06/19/17 00:00 06/19/17 00:00 06/19/17 00:00 06/19/17 00:00 06/19/17 00:00 Intake and Output: 06/18/17 06/19/17 18:59 06:59 Intake Total 1600 2475 Output Total 800 850 Balance 800 1625 - Medications Medications: Current Medications Acetaminophen (Tylenol 325mg Tab) 650 mg PO Q6 PRN PRN Reason: Fever >100.4 F Chlordiazepoxide (Librium) 15 mg PO Q8 PRN PRN Reason: Symptoms of alcohol withdrawl Enoxaparin Sodium (Lovenox) 40 mg SC DAILY [facility] Last Admin: 06/18/17 11:01 Dose: 40 mg Folic Acid (Folic Acid) 1 mg PO DAILY [facility] Last Admin: 06/18/17 09:12 Dose: 1 mg Ceftriaxone Sodium 1 gm/ (Sodium Chloride) 100 mls @ 200 mls/hr IVPB Q12H [facility] Last Admin: 06/19/17 06:46 Dose: 200 mls/hr Doxycycline Hyclate 100 mg/ (Sodium Chloride) 100 mls @ 100 mls/hr IVPB Q12H [facility] Last Admin: 06/18/17 19:24 Dose: 100 mls/hr Sodium Chloride (Sodium Chloride 0.9%) 1,000 mls @ 75 mls/hr IV .[id number] [facility] Last Admin: 06/19/17 00:15 Dose: Not Given Lorazepam (Ativan) 1 mg PO Q4 PRN PRN Reason: Anxiety Multivitamins (Hexavitamin) 1 tab PO DAILY [facility] Last Admin: 06/18/17 09:13 Dose: 1 tab Nicotine (Nicoderm Cq) 1 patch TD DAILY [facility] Last Admin: 06/18/17 11:59 Dose: 1 patch Pantoprazole Sodium (Protonix Ec Tab) 20 mg PO DAILY [facility] Last Admin: 06/18/17 09:13 Dose: 20 mg Phenytoin Sodium (Dilantin) 100 mg PO TID [facility] Last Admin: 06/18/17 18:04 Dose: 100 mg Thiamine HCl (Vitamin B1 Tab) 50 mg PO DAILY [facility] Last Admin: 06/18/17 09:13 Dose: 50 mg - Labs Labs: 06/18/17 07:13 06/18/17 07:13 Assessment and Plan (1) Dermatitis Status: Acute (2) Hyponatremia Status: Acute (3) Alcoholism Status: Acute (4) Tobacco abuse Status: Acute (5) Seizure disorder Status: Acute (6) Leg pain, bilateral Status: Acute (7) Prophylactic measure Status: Acute
[2017-06-19 07:16] LABS: BASO # 0.1 K/uL (0.0-0.2); BASO % 1.1 % (0.0-2.0); EOS # 0.1 K/uL (0.0-0.7); EOS % 1.8 % (0.0-4.0); HEMATOCRIT 38.2 % (35.0-51.0); MEAN CORPUSCULAR HEMOGLOBIN 32.5 pg (27.0-31.0); MEAN CORPUSCULAR HGB CONC 33.2 g/dL (33.0-37.0); MEAN PLATELET VOLUME 6.7 fL (7.2-11.7); MONO # 0.9 K/uL (0.0-0.8); MONO % 10.4 % (0.0-10.0); NRBC % 0.1 % (0.0-2.0); RED CELL DISTRIBUTION WIDTH 12.8 % (11.5-14.5); WHITE BLOOD COUNT 8.3 K/uL (4.8-10.8)
[2017-06-19 07:37] LABS: ALB/GLOB RATIO 1.2 (1.0-2.1); ALKALINE PHOSPHATASE 84 U/L (38-126); ALT/SGPT 36 U/L (21-72); AST/SGOT 29 U/L (17-59); BILIRUBIN,TOTAL 0.4 mg/dL (0.2-1.3); BLOOD UREA NITROGEN 7 mg/dL (9-20); CARBON DIOXIDE 27 mmol/L (22-30); CHLORIDE 97 mmol/L (98-107); GFR AFRICAN-AMERICAN > 60; GLUCOSE,RANDOM 88 mg/dL (75-110); POTASSIUM 3.9 mmol/L (3.6-5.2); SODIUM 130 mmol/L (132-148); TOTAL PROTEIN 5.8 g/dL (6.3-8.3)
--- NOTE | 2017-06-19 09:14 | RAD ---
PROCEDURE: Bilateral knees dated 06/18/2017. HISTORY: Leg pain. COMPARISON: No prior studies available for comparison FINDINGS: BONES: The current study reveals in proximal margins of fixation rods within the tibiae. Hardware appears intact. No evidence of loosening or infection. No evidence of acute displaced fracture nor dislocation however old healed fracture deformity right proximal fibula present. . The osseous structures appear intact. Joint spaces are relatively preserved. Mild diffuse demineralization. IMPRESSION: No evidence of acute displaced fracture nor dislocation. Old healed fracture deformity right proximal tibia. In situ bilateral fixation rods the both tibiae. . No evidence of hardware failure. Mild diffuse demineralization.
[2017-06-19] MEDS ORDERED: Pneumococcal 23-Valent Vaccine IM ONE ×3 (10:00→15:00)
[2017-06-19] MEDS ORDERED: Influenza Vaccine 60 mcg/0.5 mL SYR (4YR UP) IM ONE ×2 (10:00→15:00)
--- NOTE | 2017-06-19 10:20 | VASCLAB ---
PROCEDURE: Lower Extremity Venous Duplex Exam. HISTORY: leg pain PRIORS: None. TECHNIQUE: Bilateral common femoral, femoral, popliteal and posterior tibial, peroneal and great saphenous veins were evaluated. Flow was assessed with color Doppler, compressibility, assessment of phasic flow and augmentation response. Report prepared by LEX Santos, RVT FINDINGS: RIGHT: 1. Common Femoral Vein: 1.1. Compressibility - Fully compressible: Thrombus - None : Flow - Phasic: Augmentation -Normal: Reflux - None. 2. Femoral Vein: 2.1. Compressibility - Fully compressible: Thrombus - None : Flow - Phasic: Augmentation -Normal: Reflux - None. 3. Popliteal Vein: 3.1. Compressibility - Fully compressible: Thrombus - None : Flow - Phasic: Augmentation -Normal: Reflux - None. 4. Posterior Tibial Vein: 4.1. Compressibility - Fully compressible: Thrombus - None: Flow - Phasic: Augmentation -Normal: Reflux - None. 5. Peroneal Vein: 5.1. Compressibility - Fully compressible: Thrombus - None: Flow - Phasic: Augmentation -Normal: Reflux - None. 6. Great Saphenous Vein: 6.1. Compressibility - Fully compressible: Thrombus - None: Flow - Phasic: Augmentation - Normal: Reflux - None. LEFT: 1. Common Femoral Vein: 1.1. Compressibility - Fully compressible: Thrombus - None: Flow - Phasic: Augmentation -Normal: Reflux - None. 2. Femoral Vein: 2.1. Compressibility - Fully compressible: Thrombus - None: Flow - Phasic: Augmentation -Normal: Reflux - None. 3. Popliteal Vein: 3.1. Compressibility - Fully compressible: Thrombus - None : Flow - Phasic: Augmentation -Normal: Reflux - None. 4. Posterior Tibial Vein: 4.1. Compressibility - Fully compressible: Thrombus - None: Flow - Phasic: Augmentation -Normal: Reflux - None. 5. Peroneal Vein: 5.1. Compressibility - Fully compressible: Thrombus - None: Flow - Phasic: Augmentation -Normal: Reflux - None. 6. Great Saphenous Vein: 6.1. Compressibility - Fully compressible: Thrombus - None: Flow - Phasic: Augmentation - Normal: Reflux - None. OTHER FINDINGS: Right: None significant. Left: None significant. IMPRESSION: Right: No evidence of deep or superficial vein thrombosis of the right lower extremity. Normal valve function noted of the right side. Left: No evidence of deep or superficial vein thrombosis of the left lower extremity. Normal valve function noted of the left side.
[2017-06-19] MEDS: Multiple Vitamins Tab PO SCH (10:47)
[2017-06-19] MEDS: Pantoprazole 20 mg EC Tab PO SCH (10:47)
[2017-06-19] MEDS: Enoxaparin 40 mg Syringe SC SCH (10:48)
--- NOTE | 2017-06-19 10:54 | RAD ---
PROCEDURE: Pelvis and bilateral hips. AP views of the the pelvis with hips in the AP and frogleg lateral positions performed. History: Leg pain. COMPARISON: No prior study available for comparison FINDINGS: BONES: No evidence of acute displaced fracture nor dislocation. The osseous structures appear intact. Both femoral heads are appropriately located within the respective acetabula. Minimal spurring along the superolateral margins of both acetabular roofs more so on the right side. Joint spaces are relatively preserved. Spectral sclerotic changes seen along the inferior margins of both intertrochanteric regions likely representing a variation in the trabecular pattern rather than true sclerotic lesions. Minor on sclerosis both SI joints left greater than right IMPRESSION: No evidence of acute displaced fracture nor dislocation as described. Minimal spurring along the superolateral margins of both acetabular roofs right slightly more so than left.
--- NOTE | 2017-06-19 11:46 | CP.PCM.DIS ---
<Kristin Werner - Last Filed: 06/19/17 19:52> Provider - Provider Date of Admission: 06/17/17 04:31 Attending physician: Ruddy Dallas MD Time Spent in preparation of Discharge (in minutes): 45 Diagnosis - Discharge Diagnosis (1) Dermatitis Status: Acute (2) Hyponatremia Status: Acute (3) Alcoholism Status: Acute (4) Tobacco abuse Status: Acute (5) Seizure disorder Status: Acute (6) Leg pain, bilateral Status: Acute (7) Prophylactic measure Status: Acute Hospital Course - Lab Results Lab Results: Micro Results 06/19/17 00:59 Stool Ova and Parasite Concentrate Exam - Final Most Recent Lab Values WBC 8.3 K/uL (4.8-10.8) 06/19/17 07:05 RBC 3.90 Mil/uL (4.40-5.90) L 06/19/17 07:05 Hgb 12.7 g/dL (12.0-18.0) 06/19/17 07:05 Hct 38.2 % (35.0-51.0) 06/19/17 07:05 MCV 98.0 fL (80.0-94.0) H 06/19/17 07:05 MCH 32.5 pg (27.0-31.0) H 06/19/17 07:05 MCHC 33.2 g/dL (33.0-37.0) 06/19/17 07:05 RDW 12.8 % (11.5-14.5) 06/19/17 07:05 Plt Count 470 K/uL (130-400) H 06/19/17 07:05 MPV 6.7 fL (7.2-11.7) L 06/19/17 07:05 Neut % (Auto) 62.7 % (50.0-75.0) 06/19/17 07:05 Lymph % (Auto) 24.0 % (20.0-40.0) 06/19/17 07:05 Wheeler % (Auto) 10.4 % (0.0-10.0) H 06/19/17 07:05 Eos % (Auto) 1.8 % (0.0-4.0) 06/19/17 07:05 Baso % (Auto) 1.1 % (0.0-2.0) 06/19/17 07:05 Neut # 5.2 K/uL (1.8-7.0) 06/19/17 07:05 Lymph # 2.0 K/uL (1.0-4.3) 06/19/17 07:05 Wheeler # 0.9 K/uL (0.0-0.8) H 06/19/17 07:05 Eos # 0.1 K/uL (0.0-0.7) 06/19/17 07:05 Baso # 0.1 K/uL (0.0-0.2) 06/19/17 07:05 Neutrophils % (Manual) 83 % (50-75) H 06/17/17 02:44 Lymphocytes % (Manual) 9 % (20-40) L 06/17/17 02:44 Monocytes % (Manual) 6 % (0-10) 06/17/17 02:44 Eosinophils % (Manual) 1 % (0-4) 06/17/17 02:44 Basophils % (Manual) 1 % (0-2) 06/17/17 02:44 Platelet Estimate Slightly increased (NORMAL) H 06/17/17 02:44 Sodium 130 mmol/L (132-148) L 06/19/17 07:05 Potassium 3.9 mmol/L (3.6-5.2) 06/19/17 07:05 Chloride 97 mmol/L (98-107) L 06/19/17 07:05 Carbon Dioxide 27 mmol/L (22-30) 06/19/17 07:05 Anion Gap 10 (10-20) 06/19/17 07:05 BUN 7 mg/dL (9-20) L 06/19/17 07:05 Creatinine 0.6 mg/dL (0.8-1.5) L 06/19/17 07:05 Est GFR ( Amer) > 60 06/19/17 07:05 Est GFR (Non-Af Amer) > 60 06/19/17 07:05 POC Glucose (mg/dL) 76 mg/dL (65-110) 06/17/17 02:20 Random Glucose 88 mg/dL (75-110) 06/19/17 07:05 Calcium 8.0 mg/dl (8.6-10.4) L 06/19/17 07:05 Total Bilirubin 0.4 mg/dL (0.2-1.3) 06/19/17 07:05 AST 29 U/L (17-59) 06/19/17 07:05 ALT 36 U/L (21-72) 06/19/17 07:05 Alkaline Phosphatase 84 U/L (38-126) 06/19/17 07:05 Total Protein 5.8 g/dL (6.3-8.3) L 06/19/17 07:05 Albumin 3.2 g/dL (3.5-5.0) L 06/19/17 07:05 Globulin 2.7 gm/dL (2.2-3.9) 06/19/17 07:05 Albumin/Globulin Ratio 1.2 (1.0-2.1) 06/19/17 07:05 Procalcitonin 0.05 NG/ML (0.19-0.49) L 06/17/17 07:10 TSH 3rd Generation 8.28 mIU/L (0.46-4.68) H 06/17/17 07:10 Cortisol AM Sample 18.4 ug/dL (4.46-22.7) 06/17/17 07:10 Urine Osmolality 142 mosm/kg (300-1000) L 06/17/17 12:04 Ur Random Sodium 15 mmol/L 06/17/17 12:04 Stool Occult Blood Negative (NEGATIVE) 06/18/17 22:24 Alcohol, Quantitative < 10 mg/dl (0-10) 06/17/17 02:44 - Hospital Course Hospital Course: HPI: 42 year old homeless male with past medical history of seizures and alcohol abuse was brought in to the ED by ambulance for alcohol intoxication and lower extremity cellulitis. Patient is a poor historian, he does not know how he ended up in the hospital. He also does not remember when his cellulitis started. Patient used to take Dilantin and Librium for his seizures but ran out of them "a while ago". He reported his last known memory was drinking beer this afternoon. Patient also report to have diarrhea for an unknown period of time. Patient consumes alcohol daily, depends on how much money he has. Patient denies fever, shortness of breath, chest pain, nausea, vomiting, urinary symptoms. PMD: none PMHx: seizure, alcohol abuse PSHx: Left lower extremity ORIF Allergy: NKDA Social: Admits to tobacco smoking and daily alcohol consumption, homeless. Family Hx: non-contributory Home Meds: currently none Hospital Course: Patient was admitted to the hospital on 06/17/2017 after presenting to the ED with alcohol intoxication and possible cellulitis. He was admitted and treated with antibiotics, rocephin and doxycycline, and instructed to continue proper hygiene and skin care for dermatitis over the buttocks and lower extremities bilaterally. He was medically managed for hyponatremia (123 on admission and 130 on 06/19) that improved with appropriate dietary intake and fluid administration. Alcohol levels on admission were <10 and there were no signs of withdrawal. With patients history of tobacco abuse, he was placed on nicoderm patch. Patient was complaining of bilateral leg pain that was likely secondary to contact dermatitis from soiling himself and sitting all day. To rule out any physiological causes of the pain, a hip/pelvis, knee and venous dopplers were done on 06/18 bilaterally which revealed no evidence of fractures or deep or superficial vein thrombosis. Patient was also seen by physical therapy. He was offered a walker for discharge but the patient refused and preferred a cane. Patient was also offered placement in a intermediate but refused the option [patient stated "shelters have too many rules"]. Patient was medically stabilized for discharge and instructed to followup with the [facility]. This is a brief summary of the hospital course, please refer to the EMR if more information is needed Discharge Exam - Head Exam Head Exam: ATRAUMATIC, NORMAL INSPECTION - Eye Exam Eye Exam: EOMI, Normal appearance - ENT Exam ENT Exam: Mucous Membranes Moist - Respiratory Exam Respiratory Exam: Decreased Breath Sounds, NORMAL BREATHING PATTERN. absent: Rales, Rhonchi, Wheezes, Respiratory Distress - Cardiovascular Exam Cardiovascular Exam: REGULAR RHYTHM, +S1, +S2 - GI/Abdominal Exam GI & Abdominal Exam: Normal Bowel Sounds, Soft. absent: Distended, Firm, Guarding, Tenderness - Extremities Exam Additional comments: Chronic skin color changes and contact dermatitis from gluteal region extending down to knees bilaterally; right lateral hip and thigh- abrasion, erythema; , erythema; scabs bilateral ankles; poor feet and nail hygiene - Neurological Exam Neurological exam: Alert, Oriented x3 - Psychiatric Exam Psychiatric exam: Normal Affect, Normal Mood - Skin Skin Exam: Dry, Warm Discharge Plan - Follow Up Plan Condition: GOOD Disposition: HOME/ ROUTINE Instructions: Cellulitis (DC), Arthritis (GEN) Additional Instructions: Patient is stable for discharge to home with a cane. Patient is encouraged to follow up with a PMD at [facility] at [facility]. If symptoms reoccur or worsen, patient should return to the ED. Referrals: Lynn Whiteside MD [Staff Provider] - <Selvin Morales - Last Filed: 06/20/17 08:04> Provider - Provider Date of Admission: 06/17/17 04:31 Attending physician: Ruddy Dallas MD Hospital Course - Lab Results Lab Results: Micro Results 06/19/17 00:59 Stool Ova and Parasite Concentrate Exam - Final Most Recent Lab Values WBC 8.3 K/uL (4.8-10.8) 06/19/17 07:05 RBC 3.90 Mil/uL (4.40-5.90) L 06/19/17 07:05 Hgb 12.7 g/dL (12.0-18.0) 06/19/17 07:05 Hct 38.2 % (35.0-51.0) 06/19/17 07:05 MCV 98.0 fL (80.0-94.0) H 06/19/17 07:05 MCH 32.5 pg (27.0-31.0) H 06/19/17 07:05 MCHC 33.2 g/dL (33.0-37.0) 06/19/17 07:05 RDW 12.8 % (11.5-14.5) 06/19/17 07:05 Plt Count 470 K/uL (130-400) H 06/19/17 07:05 MPV 6.7 fL (7.2-11.7) L 06/19/17 07:05 Neut % (Auto) 62.7 % (50.0-75.0) 06/19/17 07:05 Lymph % (Auto) 24.0 % (20.0-40.0) 06/19/17 07:05 Wheeler % (Auto) 10.4 % (0.0-10.0) H 06/19/17 07:05 Eos % (Auto) 1.8 % (0.0-4.0) 06/19/17 07:05 Baso % (Auto) 1.1 % (0.0-2.0) 06/19/17 07:05 Neut # 5.2 K/uL (1.8-7.0) 06/19/17 07:05 Lymph # 2.0 K/uL (1.0-4.3) 06/19/17 07:05 Wheeler # 0.9 K/uL (0.0-0.8) H 06/19/17 07:05 Eos # 0.1 K/uL (0.0-0.7) 06/19/17 07:05 Baso # 0.1 K/uL (0.0-0.2) 06/19/17 07:05 Neutrophils % (Manual) 83 % (50-75) H 06/17/17 02:44 Lymphocytes % (Manual) 9 % (20-40) L 06/17/17 02:44 Monocytes % (Manual) 6 % (0-10) 06/17/17 02:44 Eosinophils % (Manual) 1 % (0-4) 06/17/17 02:44 Basophils % (Manual) 1 % (0-2) 06/17/17 02:44 Platelet Estimate Slightly increased (NORMAL) H 06/17/17 02:44 Sodium 130 mmol/L (132-148) L 06/19/17 07:05 Potassium 3.9 mmol/L (3.6-5.2) 06/19/17 07:05 Chloride 97 mmol/L (98-107) L 06/19/17 07:05 Carbon Dioxide 27 mmol/L (22-30) 06/19/17 07:05 Anion Gap 10 (10-20) 06/19/17 07:05 BUN 7 mg/dL (9-20) L 06/19/17 07:05 Creatinine 0.6 mg/dL (0.8-1.5) L 06/19/17 07:05 Est GFR ( Amer) > 60 06/19/17 07:05 Est GFR (Non-Af Amer) > 60 06/19/17 07:05 POC Glucose (mg/dL) 76 mg/dL (65-110) 06/17/17 02:20 Random Glucose 88 mg/dL (75-110) 06/19/17 07:05 Calcium 8.0 mg/dl (8.6-10.4) L 06/19/17 07:05 Total Bilirubin 0.4 mg/dL (0.2-1.3) 06/19/17 07:05 AST 29 U/L (17-59) 06/19/17 07:05 ALT 36 U/L (21-72) 06/19/17 07:05 Alkaline Phosphatase 84 U/L (38-126) 06/19/17 07:05 Total Protein 5.8 g/dL (6.3-8.3) L 06/19/17 07:05 Albumin 3.2 g/dL (3.5-5.0) L 06/19/17 07:05 Globulin 2.7 gm/dL (2.2-3.9) 06/19/17 07:05 Albumin/Globulin Ratio 1.2 (1.0-2.1) 06/19/17 07:05 Procalcitonin 0.05 NG/ML (0.19-0.49) L 06/17/17 07:10 TSH 3rd Generation 8.28 mIU/L (0.46-4.68) H 06/17/17 07:10 Cortisol AM Sample 18.4 ug/dL (4.46-22.7) 06/17/17 07:10 Urine Osmolality 142 mosm/kg (300-1000) L 06/17/17 12:04 Ur Random Sodium 15 mmol/L 06/17/17 12:04 Stool Occult Blood Negative (NEGATIVE) 06/18/17 22:24 Stool Leukocytes, Qual Negative (NEGATIVE) 06/17/17 06:02 Alcohol, Quantitative < 10 mg/dl (0-10) 06/17/17 02:44 Attending/Attestation - Attestation I have personally seen and examined this patient.: Yes I have fully participated in the care of the patient.: Yes I have reviewed all pertinent clinical information, including history, physical exam and plan: Yes Notes (Text): 06/20/17 08:04 Medical attending: Patient was seen and examined, agree with the above note by medical appointment clerk. As mentioned before the patient sodium is now above 130 and he's been tolerating his diet He does not to go to a intermediate. He feels that the rules are too restrictive he was not agreeable to this he would rather he explains be brought to the [facility] and dropped off. I wished him the best, the medical team also try to provide additional layers of clothing Thank you very much, Selvin Morales
[2017-06-19 15:51] VITALS: BP 132/80; PULSE 93; TEMP 98.5; O2SAT 98
== END 2017-06-19 17:30 | disposition home or self-care (01) | DRG 277 ==
LOC: C.ER 00:41 → C.9E 04:31 → C.6T 04:49 → C.3T 04:56
PROVIDERS: ADMIT Internal Medicine; ATTEND Internal Medicine
DX: L03.115 Cellulitis of right lower limb (principal); E46 Unspecified protein-calorie malnutrition; E87.1 Hypo-osmolality and hyponatremia; F10.220 Alcohol dependence with intoxication, uncomplicated; B35.1 Tinea unguium; E86.0 Dehydration; L03.317 Cellulitis of buttock; L03.116 Cellulitis of left lower limb; F17.210 Nicotine dependence, cigarettes, uncomplicated; Z59.0 Homelessness; F32.9 Major depressive disorder, single episode, unspecified; F41.9 Anxiety disorder, unspecified; L30.8 Other specified dermatitis; G40.509 Epileptic seizures related to external causes, not intractable, without status epilepticus; Y90.0 Blood alcohol level of less than 20 mg/100 ml; Z91.19 Patient's noncompliance with other medical treatment and regimen

== ENCOUNTER 2017-06-30 23:19 | Emergency (ER) | payer MEDICAID, OTHER ==
--- NOTE | 2017-07-01 00:36 | C.PDOC ---
History Of Present Illness Patient brought to the ER via EMS after he was found intoxicated in public. Denies physical complaints at this time. Time Seen by Provider: 07/01/17 00:36 Chief Complaint (Nursing): Substance Abuse History Per: Patient, EMS History/Exam Limitations: no limitations Onset/Duration Of Symptoms: Hrs Current Symptoms Are (Timing): Still Present Suicide/Self Injury Attempted (Context): None Modifying Factor(s): Alcohol Severity: None Pain Scale Rating Of: 0 Associated Symptoms: denies: Depression, Suicidal Thoughts, Suicidal Plan Involuntary Hold By: None Recent travel outside of the [place]: No Additional History Per: Patient Past Medical History Reviewed: Historical Data, Nursing Documentation, Vital Signs Vital Signs: Last Vital Signs Temp 98.1 F 07/01/17 03:56 Pulse 88 07/01/17 05:05 Resp 18 07/01/17 05:05 BP 109/62 07/01/17 05:05 Pulse Ox 100 07/01/17 05:11 - Medical History PMH: Anxiety, Arthritis (b/l ankle), Depression, Fractures (left leg), Seizures (alcohol related) - [facility] Procedures ALCOHOL DETOXIFICATION (10/30/14) APPLICATION OF SPLINT (03/31/13) CLOSURE SKIN & SUBCUTANEOUS NEC (10/16/14) DETOXIFICATION SERVICES FOR SUBSTANCE ABUSE TREATMENT (08/16/16) INDIV SYSTEM CONSULTANT FOR SUBSTANCE ABUSE TREATMENT, PSYCHOEDUCATION (08/16/16) INDIV SYSTEM CONSULTANT FOR SUBSTANCE ABUSE, COGNITIVE BEHAVIORAL (08/16/16) INDIVID PSYCHOTHERAP NEC (10/14/14) INJECT/INFUSE NEC (09/30/14) TETANUS TOXOID ADMINIST (10/16/14) Family History: States: No Known Family Hx - Social History Hx Tobacco Use: Yes Hx Alcohol Use: Yes Hx Substance Use: No - Immunization History Hx Tetanus Toxoid Vaccination: No Hx Influenza Vaccination: No Hx Pneumococcal Vaccination: No Review Of Systems Constitutional: Negative for: Fever, Chills Cardiovascular: Negative for: Chest Pain Gastrointestinal: Negative for: Nausea, Vomiting, Diarrhea Neurological: Negative for: Weakness Psych: Negative for: Anxiety Physical Exam - Physical Exam Appears: Non-toxic, No Acute Distress, Other (ETOH on breath) Skin: Warm, Dry Head: Normacephalic Oral Mucosa: Moist Neck: Supple Chest: Symmetrical Cardiovascular: Rhythm Regular Respiratory: No Rales, No Rhonchi, No Wheezing Gastrointestinal/Abdominal: Soft, No Tenderness, No Distention Back: No CVA Tenderness Extremity: Normal ROM Extremity: Bilateral: Atraumatic Neurological/Psych: Oriented x3 Gait: Unsteady ED Course And Treatment O2 Sat by Pulse Oximetry: 100 (Room air) Pulse Ox Interpretation: Normal Reevaluation Time: 05:10 Reassessment Condition: Improved Disposition Counseled Patient/Family Regarding: Studies Performed, Diagnosis, Need For Followup - Disposition Referrals: [facility] [Outside] Disposition: HOME/ ROUTINE Disposition Time: 00:36 Condition: FAIR Instructions: Alcohol Intoxication (DC) Forms: [employer] (Bulgarian) - Clinical Impression Clinical Impression: Alcohol intoxication - Scribe Statement The provider has reviewed the documentation as recorded by the Scribe Ricky Ruiz All medical record entries made by the Scribe were at my direction and personally dictated by me. I have reviewed the chart and agree that the record accurately reflects my personal performance of the history, physical exam, medical decision making, and the department course for this patient. I have also personally directed, reviewed, and agree with the discharge instructions and disposition.
[2017-07-01 04:04] VITALS: PULSE 88; TEMP 98.1
[2017-07-01 05:05] VITALS: BP 109/62; RESP 18
[2017-07-01 05:11] VITALS: O2SAT 100
== END 2017-07-01 06:15 | disposition home or self-care (01) ==
LOC: C.ER 23:19
DX: F10.129 Alcohol abuse with intoxication, unspecified (principal); Z87.891 Personal history of nicotine dependence

== ENCOUNTER 2017-07-05 23:54 | Emergency (ER) | payer OTHER ==
[2017-07-06 00:19] VITALS: TEMP 97
--- NOTE | 2017-07-06 01:26 | C.PDOC ---
History Of Present Illness 42 year old male with Hx of ETOH abuse brought to the ED by EMS after being found outside drinking alcohol. Patient is also c/o back pain as well as B/L shoulder pain. Patient denies trauma, injury, fall, chest pain, SOB, headache, head injury, weakness, numbness, saddle anesthesia, incontinence, urinary symptoms, sensory or motor deficits. Time Seen by Provider: 07/06/17 00:28 Chief Complaint (Nursing): Back Pain History Per: Patient, EMS History/Exam Limitations: intoxication Onset/Duration Of Symptoms: Hrs Current Symptoms Are (Timing): Still Present Severity: None Previous Symptoms: None Associated Symptoms: None Exacerbating Factor(s): Nothing Recent travel outside of the [place]: No Additional History Per: Patient, EMS Past Medical History Reviewed: Historical Data, Nursing Documentation, Vital Signs Vital Signs: Last Vital Signs Temp 97 F L 07/06/17 00:11 Pulse 110 H 07/06/17 00:11 Resp 17 07/06/17 06:10 BP 117/79 07/06/17 06:10 Pulse Ox 100 07/06/17 06:10 - Medical History PMH: Anxiety, Arthritis (b/l ankle), Depression, Fractures (left leg), Seizures (alcohol related) Denies: Chronic Kidney Disease Surgical History: No Surg Hx - [facility] Procedures ALCOHOL DETOXIFICATION (10/30/14) APPLICATION OF SPLINT (03/31/13) CLOSURE SKIN & SUBCUTANEOUS NEC (10/16/14) DETOXIFICATION SERVICES FOR SUBSTANCE ABUSE TREATMENT (08/16/16) INDIV BODY MAKE UP ARTIST FOR SUBSTANCE ABUSE TREATMENT, PSYCHOEDUCATION (08/16/16) INDIV BODY MAKE UP ARTIST FOR SUBSTANCE ABUSE, COGNITIVE BEHAVIORAL (08/16/16) INDIVID PSYCHOTHERAP NEC (10/14/14) INJECT/INFUSE NEC (09/30/14) TETANUS TOXOID ADMINIST (10/16/14) Family History: States: Unknown Family Hx - Social History Hx Tobacco Use: Yes Hx Alcohol Use: Yes Hx Substance Use: No - Immunization History Hx Tetanus Toxoid Vaccination: No Hx Influenza Vaccination: No Hx Pneumococcal Vaccination: No Review Of Systems Constitutional: Negative for: Fever, Chills Cardiovascular: Negative for: Chest Pain, Palpitations Respiratory: Negative for: Cough, Shortness of Breath Gastrointestinal: Negative for: Nausea, Vomiting, Abdominal Pain Genitourinary: Negative for: Incontinence Musculoskeletal: Positive for: Shoulder Pain, Back Pain Skin: Negative for: Rash Neurological: Negative for: Weakness, Numbness, Headache Physical Exam - Physical Exam Appears: Non-toxic, No Acute Distress Skin: Normal Color, Warm, Dry Head: Atraumatic, Normacephalic Eye(s): bilateral: Normal Inspection Nose: Discharge Oral Mucosa: Moist Neck: Normal ROM, Supple Chest: Symmetrical, No Tenderness Cardiovascular: Rhythm Regular (mild tachycardic), No Murmur Respiratory: Normal Breath Sounds, No Rhonchi, No Wheezing Gastrointestinal/Abdominal: Soft, No Tenderness, No Guarding, No Rebound Back: Normal Inspection, No CVA Tenderness, No Vertebral Tenderness Extremity: Normal ROM Extremity: Bilateral: Atraumatic Neurological/Psych: Oriented x3, Normal Motor, Normal Sensation Gait: Other (intoxicated) ED Course And Treatment O2 Sat by Pulse Oximetry: 97 (On RA) Pulse Ox Interpretation: Normal Progress Note: On reassessment pt appears well, in NAD, VSS. Fully ambulatory with no tremors. Pt is stable for discharge Disposition Counseled Patient/Family Regarding: Diagnosis, Need For Followup, Rx Given - Disposition Disposition: HOME/ ROUTINE Disposition Time: 06:00 Condition: STABLE Instructions: Abuse of Alcohol (ED) Forms: [employer] (Azerbaijani) - Clinical Impression Clinical Impression: Alcohol dependence syndrome - PA / [employer] / Resident Statement MD/DO has reviewed & agrees with the documentation as recorded. - Scribe Statement The provider has reviewed the documentation as recorded by the Scribe Cornell Herrmann All medical record entries made by the Scribe were at my direction and personally dictated by me. I have reviewed the chart and agree that the record accurately reflects my personal performance of the history, physical exam, medical decision making, and the department course for this patient. I have also personally directed, reviewed, and agree with the discharge instructions and disposition.
[2017-07-06 06:11] VITALS: BP 117/79; RESP 17
[2017-07-06 06:48] VITALS: PULSE 85; O2SAT 97
== END 2017-07-06 06:10 | disposition home or self-care (01) ==
LOC: C.ER 23:54
DX: F10.20 Alcohol dependence, uncomplicated (principal); Y90.9 Presence of alcohol in blood, level not specified

== ENCOUNTER 2017-07-07 18:04 | Emergency (ER) | payer MEDICAID ==
--- NOTE | 2017-07-07 20:13 | C.PDOC ---
History Of Present Illness Patient presents to the ER with acute ETOH intoxication and requesting a place to spend the night. Denies any physical complaints at this time. Time Seen by Provider: 07/07/17 19:49 Chief Complaint (Nursing): Substance Abuse History Per: Patient History/Exam Limitations: no limitations Onset/Duration Of Symptoms: Hrs Current Symptoms Are (Timing): Still Present Suicide/Self Injury Attempted (Context): None Modifying Factor(s): Alcohol Associated Symptoms: denies: Depression, Suicidal Thoughts, Suicidal Plan Involuntary Hold By: None Recent travel outside of the [place]: No Past Medical History Reviewed: Historical Data, Nursing Documentation, Vital Signs Vital Signs: Last Vital Signs Temp 98.7 F 07/08/17 05:28 Pulse 58 L 07/08/17 05:28 Resp 16 07/08/17 05:28 BP 98/62 L 07/08/17 05:28 Pulse Ox 97 07/08/17 05:28 - Medical History PMH: Anxiety, Arthritis (b/l ankle), Depression, Fractures (left leg), Seizures (alcohol related) - [facility] Procedures ALCOHOL DETOXIFICATION (10/30/14) APPLICATION OF SPLINT (03/31/13) CLOSURE SKIN & SUBCUTANEOUS NEC (10/16/14) DETOXIFICATION SERVICES FOR SUBSTANCE ABUSE TREATMENT (08/16/16) INDIV RECREATION OFFICER FOR SUBSTANCE ABUSE TREATMENT, PSYCHOEDUCATION (08/16/16) INDIV RECREATION OFFICER FOR SUBSTANCE ABUSE, COGNITIVE BEHAVIORAL (08/16/16) INDIVID PSYCHOTHERAP NEC (10/14/14) INJECT/INFUSE NEC (09/30/14) TETANUS TOXOID ADMINIST (10/16/14) Family History: States: No Known Family Hx - Social History Hx Tobacco Use: Yes Hx Alcohol Use: Yes Hx Substance Use: No - Immunization History Hx Tetanus Toxoid Vaccination: No Hx Influenza Vaccination: No Hx Pneumococcal Vaccination: No Review Of Systems Constitutional: Negative for: Fever, Chills Gastrointestinal: Negative for: Nausea, Vomiting, Diarrhea Physical Exam - Physical Exam Appears: Non-toxic, No Acute Distress Skin: Warm, Dry Head: Normacephalic Oral Mucosa: Moist Chest: Symmetrical, No Tenderness Cardiovascular: Rhythm Regular Respiratory: No Rales, No Rhonchi, No Wheezing Gastrointestinal/Abdominal: Soft, No Tenderness Extremity: Pedal Edema (Bilateral), Other (Legs with poor peripheral vascular skin changes. Callus to bilateral feet. small necrosis/dark eschar to medical aspect of left 2nd toe.) Pulses: Left Dorsalis Pedis: Normal, Right Dorsalis Pedis: Normal Neurological/Psych: Oriented x3 Gait: Steady ED Course And Treatment - Laboratory Results Result Diagrams: 07/07/17 21:49 O2 Sat by Pulse Oximetry: 100 Pulse Ox Interpretation: Normal Reevaluation Time: 05:37 Reassessment Condition: Improved Disposition Counseled Patient/Family Regarding: Studies Performed, Diagnosis, Need For Followup - Disposition Referrals: Podiatry Clinic [Outside] [facility] [Outside] Disposition: HOME/ ROUTINE Disposition Time: 20:12 Condition: FAIR Additional Instructions: Please follow up with the Podiatry clinic Instructions: Alcohol Intoxication (DC), Frostbite (ED) Forms: [employer] (Yoruba) - Clinical Impression Clinical Impression: Alcohol intoxication, Superficial frostbite of toe - Scribe Statement The provider has reviewed the documentation as recorded by the Scribchandra Ruiz All medical record entries made by the Annieibchandra were at my direction and personally dictated by me. I have reviewed the chart and agree that the record accurately reflects my personal performance of the history, physical exam, medical decision making, and the department course for this patient. I have also personally directed, reviewed, and agree with the discharge instructions and disposition.
[2017-07-07 21:58] LABS: URINE BILIRUBIN NEGATIVE (NEGATIVE); URINE BLOOD 1+ (NEGATIVE); URINE CLARITY Clear (Clear); URINE COLOR Colorless (YELLOW); URINE GLUCOSE (UA) NORMAL (Normal); URINE LEUKOCYTE ESTERASE NEG Leu/uL (Negative); URINE NITRATE NEGATIVE (NEGATIVE); URINE PROTEIN NEGATIVE (NEGATIVE); URINE UROBILINOGEN NORMAL mg/dL (0.2-1.0)
[2017-07-07 22:03] LABS: BASO % 0.2 % (0.0-2.0); EOS # 0.2 K/uL (0.0-0.7); EOS % 2.6 % (0.0-4.0); HEMOGLOBIN 13.6 g/dL (12.0-18.0); LYMPH # 2.2 K/uL (1.0-4.3); LYMPH % 27.9 % (20.0-40.0); MEAN CELL VOLUME 97.3 fL (80.0-94.0); MEAN CORPUSCULAR HEMOGLOBIN 34.1 pg (27.0-31.0); MEAN PLATELET VOLUME 6.3 fL (7.2-11.7); MONO # 0.7 K/uL (0.0-0.8); MONO % 8.9 % (0.0-10.0); NEUT # 4.8 K/uL (1.8-7.0); NEUT % 60.4 % (50.0-75.0); NRBC % 0.1 % (0.0-2.0)
[2017-07-07 22:05] LABS: INR 0.9; PROTHROMBIN TIME 9.6 SECONDS (9.7-12.2)
[2017-07-07 22:08] LABS: MAGNESIUM 1.7 mg/dL (1.6-2.3)
[2017-07-07 22:57] LABS: VENOUS BLOOD GAS BASE EXCESS -1.1 mmol/L (0.0-2.0); VENOUS BLOOD GAS PCO2 48 mmHg (40-60); VENOUS BLOOD GAS PO2 25 mm/Hg (30-55); VENOUS BLOOD PH 7.33 (7.32-7.43)
[2017-07-08 05:30] VITALS: BP 98/62; PULSE 58; RESP 16; TEMP 98.7
[2017-07-08 05:40] VITALS: O2SAT 100
== END 2017-07-08 06:15 | disposition home or self-care (01) ==
LOC: C.ER 18:04
DX: F10.129 Alcohol abuse with intoxication, unspecified (principal); Y90.7 Blood alcohol level of 200-239 mg/100 ml; T33.832A Superficial frostbite of left toe(s), initial encounter

== ENCOUNTER 2017-07-08 17:17 | Emergency (ER) | payer MEDICAID ==
[2017-07-09 01:59] VITALS: RESP 16; TEMP 98
--- NOTE | 2017-07-09 04:41 | C.PDOC ---
History Of Present Illness 42 year old male presents to the ED intoxicated and looking for a place to spend the night. Upon questioning patient denies any SI/HI, hallucinations, physical complaints at this time. Patient refuses to have an exam. Time Seen by Provider: 07/08/17 22:41 Chief Complaint (Nursing): Substance Abuse History Per: Patient History/Exam Limitations: intoxication Onset/Duration Of Symptoms: Hrs Current Symptoms Are (Timing): Still Present Suicide/Self Injury Attempted (Context): None, Cut Wrists Modifying Factor(s): Alcohol Associated Symptoms: denies: Depression, Suicidal Thoughts, Suicidal Plan Recent travel outside of the [place]: No Additional History Per: Patient Past Medical History Reviewed: Historical Data, Nursing Documentation, Vital Signs Vital Signs: Last Vital Signs Temp 98 F 07/09/17 06:18 Pulse 90 07/09/17 06:18 Resp 16 07/09/17 06:18 BP 126/64 07/09/17 06:18 Pulse Ox 98 07/09/17 06:18 - Medical History PMH: Anxiety, Arthritis (b/l ankle), Depression, Fractures (left leg), Seizures (alcohol related) Denies: Chronic Kidney Disease Surgical History: No Surg Hx - [facility] Procedures ALCOHOL DETOXIFICATION (10/30/14) APPLICATION OF SPLINT (03/31/13) CLOSURE SKIN & SUBCUTANEOUS NEC (10/16/14) DETOXIFICATION SERVICES FOR SUBSTANCE ABUSE TREATMENT (08/16/16) INDIV CORPORATE DEVELOPMENT OFFICER FOR SUBSTANCE ABUSE TREATMENT, PSYCHOEDUCATION (08/16/16) INDIV CORPORATE DEVELOPMENT OFFICER FOR SUBSTANCE ABUSE, COGNITIVE BEHAVIORAL (08/16/16) INDIVID PSYCHOTHERAP NEC (10/14/14) INJECT/INFUSE NEC (09/30/14) TETANUS TOXOID ADMINIST (10/16/14) Family History: States: Unknown Family Hx - Social History Hx Tobacco Use: Yes Hx Alcohol Use: Yes Hx Substance Use: No - Immunization History Hx Tetanus Toxoid Vaccination: No Hx Influenza Vaccination: No Hx Pneumococcal Vaccination: No Review Of Systems Constitutional: Negative for: Fever, Chills Eyes: Negative for: Pain ENT: Negative for: Ear Pain Cardiovascular: Negative for: Chest Pain, Palpitations Respiratory: Negative for: Cough, Shortness of Breath Gastrointestinal: Negative for: Nausea, Vomiting, Abdominal Pain Genitourinary: Negative for: Dysuria Musculoskeletal: Negative for: Neck Pain Skin: Negative for: Rash Neurological: Negative for: Weakness, Numbness Psych: Negative for: Depression, Suicidal ideation Physical Exam - Physical Exam Appears: Non-toxic, Other (Intoxciated) Skin: Normal Color, Warm, Dry Head: Atraumatic, Normacephalic Nose: No Discharge, No Deformity Extremity: Normal ROM, No Pedal Edema, No Calf Tenderness, No Deformity, No Swelling Neurological/Psych: Oriented x3 ED Course And Treatment O2 Sat by Pulse Oximetry: 100 (On RA) Pulse Ox Interpretation: Normal Medical Decision Making Medical Decision Making: patient slept without complaint. Disposition Counseled Patient/Family Regarding: Diagnosis - Disposition Disposition: HOME/ ROUTINE Disposition Time: 02:02 Condition: STABLE Instructions: Alcohol Intoxication (DC) Forms: [facility] (French) - Clinical Impression Clinical Impression: Alcohol intoxication - Scribe Statement The provider has reviewed the documentation as recorded by the Scribe Cornell Herrmann All medical record entries made by the Scribe were at my direction and personally dictated by me. I have reviewed the chart and agree that the record accurately reflects my personal performance of the history, physical exam, medical decision making, and the department course for this patient. I have also personally directed, reviewed, and agree with the discharge instructions and disposition.
[2017-07-09 06:19] VITALS: BP 126/64; PULSE 90
[2017-07-10 02:02] VITALS: O2SAT 100
== END 2017-07-09 06:19 | disposition home or self-care (01) ==
LOC: C.ER 17:17
DX: F10.129 Alcohol abuse with intoxication, unspecified (principal); Z87.891 Personal history of nicotine dependence

== ENCOUNTER 2017-07-10 20:28 | Emergency (ER) | payer MEDICAID ==
--- NOTE | 2017-07-10 23:10 | C.PDOC ---
Time Seen by Provider: 07/10/17 23:09 Chief Complaint (Nursing): Medical Clearance History Per: Patient History/Exam Limitations: no limitations Onset/Duration Of Symptoms: Hrs Current Symptoms Are (Timing): Still Present Severity: None Past Medical History Reviewed: Historical Data, Nursing Documentation, Vital Signs Vital Signs: Last Vital Signs Temp 98.6 F 07/11/17 02:31 Pulse 88 07/11/17 02:31 Resp 20 07/11/17 02:31 BP 139/77 07/11/17 02:31 Pulse Ox 97 07/11/17 02:31 - Medical History PMH: Anxiety, Arthritis (b/l ankle), Depression, Fractures (left leg), Seizures (alcohol related) Denies: Chronic Kidney Disease - [facility] Procedures ALCOHOL DETOXIFICATION (10/30/14) APPLICATION OF SPLINT (03/31/13) CLOSURE SKIN & SUBCUTANEOUS NEC (10/16/14) DETOXIFICATION SERVICES FOR SUBSTANCE ABUSE TREATMENT (08/16/16) INDIV HOT ROLL LAMINATOR FOR SUBSTANCE ABUSE TREATMENT, PSYCHOEDUCATION (08/16/16) INDIV HOT ROLL LAMINATOR FOR SUBSTANCE ABUSE, COGNITIVE BEHAVIORAL (08/16/16) INDIVID PSYCHOTHERAP NEC (10/14/14) INJECT/INFUSE NEC (09/30/14) TETANUS TOXOID ADMINIST (10/16/14) Family History: States: No Known Family Hx - Social History Hx Tobacco Use: Yes Hx Alcohol Use: Yes Hx Substance Use: No - Immunization History Hx Tetanus Toxoid Vaccination: No Hx Influenza Vaccination: No Hx Pneumococcal Vaccination: No Review Of Systems Constitutional: Negative for: Fever, Chills Cardiovascular: Negative for: Chest Pain Respiratory: Negative for: Shortness of Breath Gastrointestinal: Negative for: Nausea Musculoskeletal: Positive for: Leg Pain Skin: Negative for: Rash Neurological: Negative for: Weakness Psych: Negative for: Anxiety Physical Exam - Physical Exam Appears: Non-toxic Skin: Warm, Dry Neck: Supple Chest: Symmetrical Cardiovascular: Rhythm Regular Respiratory: No Rales, No Rhonchi, No Wheezing Gastrointestinal/Abdominal: Soft, No Tenderness, No Distention Back: No CVA Tenderness Extremity: No Tenderness Extremity: Bilateral: Atraumatic Neurological/Psych: Oriented x3 Gait: Steady ED Course And Treatment O2 Sat by Pulse Oximetry: 98 Pulse Ox Interpretation: Normal Reevaluation Time: 05:43 Reassessment Condition: Improved Disposition Counseled Patient/Family Regarding: Studies Performed, Diagnosis, Need For Followup - Disposition Referrals: [facility] at [facility] [Outside] Disposition: HOME/ ROUTINE Disposition Time: 23:10 Condition: FAIR Forms: [facility] (Belarusian), General Discharge Instructions - Clinical Impression Clinical Impression: Medical assessment
[2017-07-11 02:32] VITALS: RESP 20
[2017-07-11 05:54] VITALS: BP 119/67; PULSE 84; TEMP 98.3; O2SAT 99
== END 2017-07-11 06:22 | disposition home or self-care (01) ==
LOC: C.ER 20:28
DX: Z04.8 Encounter for examination and observation for other specified reasons (principal)

== ENCOUNTER 2017-07-15 19:28 | Emergency (ER) | payer MEDICAID ==
--- NOTE | 2017-07-15 20:49 | C.PDOC ---
History Of Present Illness Patient presents with complaints of chronic bilateral knee and foot pain that began 1 month ago. Patient states he was seen at [facility] for similar symptoms 2 days ago with negative work up. Denies nausea, vomiting, fever, chills or diarrhea. Patient requesting to stay the night. Time Seen by Provider: 07/15/17 20:49 Chief Complaint (Nursing): Cough, Cold, Congestion History Per: Patient History/Exam Limitations: no limitations Onset/Duration Of Symptoms: Hrs Current Symptoms Are (Timing): Still Present Recent travel outside of the [place]: No Past Medical History Reviewed: Historical Data, Nursing Documentation, Vital Signs Vital Signs: Last Vital Signs Temp 97.8 F 07/16/17 01:36 Pulse 84 07/16/17 01:36 Resp 18 07/16/17 01:36 BP 110/74 07/16/17 01:36 Pulse Ox 95 07/16/17 01:36 - Medical History PMH: Anxiety, Arthritis (b/l ankle), Depression, Fractures (left leg), Seizures (alcohol related) - [facility] Procedures ALCOHOL DETOXIFICATION (10/30/14) APPLICATION OF SPLINT (03/31/13) CLOSURE SKIN & SUBCUTANEOUS NEC (10/16/14) DETOXIFICATION SERVICES FOR SUBSTANCE ABUSE TREATMENT (08/16/16) INDIV RADIO INTERFERENCE EXPERT FOR SUBSTANCE ABUSE TREATMENT, PSYCHOEDUCATION (08/16/16) INDIV RADIO INTERFERENCE EXPERT FOR SUBSTANCE ABUSE, COGNITIVE BEHAVIORAL (08/16/16) INDIVID PSYCHOTHERAP NEC (10/14/14) INJECT/INFUSE NEC (09/30/14) TETANUS TOXOID ADMINIST (10/16/14) Family History: States: No Known Family Hx - Social History Hx Tobacco Use: Yes Hx Alcohol Use: Yes Hx Substance Use: No - Immunization History Hx Tetanus Toxoid Vaccination: No Hx Influenza Vaccination: No Hx Pneumococcal Vaccination: No Review Of Systems Constitutional: Negative for: Fever, Chills Gastrointestinal: Negative for: Nausea, Vomiting, Diarrhea Neurological: Negative for: Weakness, Numbness Psych: Negative for: Depression, Suicidal ideation Physical Exam - Physical Exam Appears: Non-toxic, No Acute Distress Skin: Warm, Dry Head: Normacephalic Eye(s): bilateral: Normal Inspection Chest: Symmetrical, No Tenderness Cardiovascular: Rhythm Regular Extremity: Normal ROM, No Tenderness, No Swelling Extremity: Bilateral: Normal Color And Temperature, Normal ROM Neurological/Psych: Oriented x3, Normal Speech, Normal Cognition ED Course And Treatment O2 Sat by Pulse Oximetry: 98 (RA) Pulse Ox Interpretation: Normal Reevaluation Time: 05:36 Reassessment Condition: Improved Disposition Counseled Patient/Family Regarding: Studies Performed, Diagnosis, Need For Followup - Disposition Referrals: [facility] at [facility] [Outside] Disposition Time: 20:49 Condition: FAIR Forms: [facility] (Eritrean), General Discharge Instructions - Clinical Impression Clinical Impression: Alcohol use - Scribe Statement The provider has reviewed the documentation as recorded by the Scribchandra Becerra All medical record entries made by the Annieibchandra were at my direction and personally dictated by me. I have reviewed the chart and agree that the record accurately reflects my personal performance of the history, physical exam, medical decision making, and the department course for this patient. I have also personally directed, reviewed, and agree with the discharge instructions and disposition.
[2017-07-16 06:32] VITALS: BP 114/64; PULSE 83; RESP 22; TEMP 98.4; O2SAT 97
== END 2017-07-16 06:27 | disposition home or self-care (01) ==
LOC: C.ER 19:28
DX: F10.10 Alcohol abuse, uncomplicated (principal); Y90.9 Presence of alcohol in blood, level not specified

== ENCOUNTER 2017-07-16 21:39 | Emergency (ER) | payer MEDICAID ==
--- NOTE | 2017-07-17 00:05 | C.PDOC ---
History Of Present Illness 42 year old male presents to the ER requesting a place to stay the night, he admits to drinking tonight. He is also complaining of pain to the left 2nd toe. Denies weakness, numbness, or other physical complaints. Time Seen by Provider: 07/17/17 00:04 Chief Complaint (Nursing): Substance Abuse History Per: Patient History/Exam Limitations: no limitations Onset/Duration Of Symptoms: Days Suicide/Self Injury Attempted (Context): None Modifying Factor(s): Alcohol Severity: Mild Pain Scale Rating Of: 3 Associated Symptoms: denies: Depression, Suicidal Thoughts, Suicidal Plan Involuntary Hold By: None Recent travel outside of the [place]: No Past Medical History Reviewed: Historical Data, Nursing Documentation, Vital Signs Vital Signs: Last Vital Signs Temp 98.9 F 07/17/17 03:06 Pulse 88 07/17/17 03:06 Resp 20 07/17/17 03:06 BP 109/63 07/17/17 03:06 Pulse Ox 97 07/17/17 03:06 - Medical History PMH: Anxiety, Arthritis (b/l ankle), Depression, Fractures (left leg), Seizures (alcohol related) - [facility] Procedures ALCOHOL DETOXIFICATION (10/30/14) APPLICATION OF SPLINT (03/31/13) CLOSURE SKIN & SUBCUTANEOUS NEC (10/16/14) DETOXIFICATION SERVICES FOR SUBSTANCE ABUSE TREATMENT (08/16/16) INDIV HAZMAT TANKER DRIVER FOR SUBSTANCE ABUSE TREATMENT, PSYCHOEDUCATION (08/16/16) INDIV HAZMAT TANKER DRIVER FOR SUBSTANCE ABUSE, COGNITIVE BEHAVIORAL (08/16/16) INDIVID PSYCHOTHERAP NEC (10/14/14) INJECT/INFUSE NEC (09/30/14) TETANUS TOXOID ADMINIST (10/16/14) Family History: States: No Known Family Hx - Social History Hx Tobacco Use: Yes Hx Alcohol Use: Yes Hx Substance Use: No - Immunization History Hx Tetanus Toxoid Vaccination: No Hx Influenza Vaccination: Yes Hx Pneumococcal Vaccination: No Review Of Systems Constitutional: Negative for: Fever, Chills Gastrointestinal: Negative for: Nausea, Vomiting, Diarrhea Musculoskeletal: Positive for: Foot Pain Neurological: Negative for: Weakness, Numbness Physical Exam - Physical Exam Appears: Non-toxic, Other (ETOH on breath) Skin: Warm, Dry Head: Normacephalic Oral Mucosa: Moist Chest: Symmetrical, No Tenderness Cardiovascular: Rhythm Regular Respiratory: No Rales, No Rhonchi, No Wheezing Gastrointestinal/Abdominal: Soft, No Tenderness Extremity: Capillary Refill (<2 seconds), Other (Mild discoloration and compression injury to left 2nd toe due to fact that patient wears the same boots for 13-14 hours a day.) Pulses: Left Dorsalis Pedis: Normal, Right Dorsalis Pedis: Normal Neurological/Psych: Oriented x3 ED Course And Treatment O2 Sat by Pulse Oximetry: 99 (room air) Pulse Ox Interpretation: Normal Reevaluation Time: 05:30 Reassessment Condition: Improved Disposition Counseled Patient/Family Regarding: Studies Performed, Diagnosis, Need For Followup - Disposition Referrals: [facility] [Outside] Podiat[facility] Clinic [Outside] Disposition: HOME/ ROUTINE Disposition Time: 00:04 Condition: FAIR Forms: [facility] (Bahamian), General Discharge Instructions - Clinical Impression Clinical Impression: Alcohol intoxication, Foot pain, left - Scribe Statement The provider has reviewed the documentation as recorded by the Scribchandra Ruiz All medical record entries made by the Annieibchandra were at my direction and personally dictated by me. I have reviewed the chart and agree that the record accurately reflects my personal performance of the history, physical exam, medical decision making, and the department course for this patient. I have also personally directed, reviewed, and agree with the discharge instructions and disposition.
[2017-07-17 05:43] VITALS: BP 128/82; PULSE 84; RESP 22; TEMP 98.6; O2SAT 97
== END 2017-07-17 05:55 | disposition home or self-care (01) ==
LOC: C.ER 21:39
DX: F10.129 Alcohol abuse with intoxication, unspecified (principal); M79.672 Pain in left foot; Z87.891 Personal history of nicotine dependence

== ENCOUNTER 2017-07-17 17:42 | Emergency (ER) | payer MEDICAID ==
[2017-07-17 18:18] VITALS: BP 121/72; PULSE 103; RESP 21; TEMP 98.4; O2SAT 98
--- NOTE | 2017-07-17 21:16 | C.PDOC ---
History Of Present Illness 42 year old male with a past medical history of alcohol abuse and is well known to the ER with 21 visits since the beginning of June who presents to the emergency department with a complaint of mild cellulitis involving both lower extremities with pain x3-4 weeks. Admits to drinking alcohol this evening. Patient was seen for similar complaint last night and was also intoxicated at that time. Denies fever, chills, or any further medical complaints. Chief Complaint (Nursing): Lower Extremity Problem/Injury History Per: Patient History/Exam Limitations: no limitations Onset/Duration Of Symptoms: Days Past Medical History Reviewed: Historical Data, Nursing Documentation, Vital Signs Vital Signs: Last Vital Signs Temp 98.4 F 07/17/17 18:16 Pulse 103 H 07/17/17 18:16 Resp 21 07/17/17 18:16 BP 121/72 07/17/17 18:16 Pulse Ox 98 07/17/17 21:31 - Medical History PMH: Anxiety, Arthritis (b/l ankle), Depression, Fractures (left leg), Seizures (alcohol related) Denies: Chronic Kidney Disease - [facility] Procedures ALCOHOL DETOXIFICATION (10/30/14) APPLICATION OF SPLINT (03/31/13) CLOSURE SKIN & SUBCUTANEOUS NEC (10/16/14) DETOXIFICATION SERVICES FOR SUBSTANCE ABUSE TREATMENT (08/16/16) INDIV AGRICULTURAL SCIENTIST FOR SUBSTANCE ABUSE TREATMENT, PSYCHOEDUCATION (08/16/16) INDIV AGRICULTURAL SCIENTIST FOR SUBSTANCE ABUSE, COGNITIVE BEHAVIORAL (08/16/16) INDIVID PSYCHOTHERAP NEC (10/14/14) INJECT/INFUSE NEC (09/30/14) TETANUS TOXOID ADMINIST (10/16/14) Family History: States: Unknown Family Hx - Social History Hx Tobacco Use: Yes Hx Alcohol Use: Yes Hx Substance Use: No - Immunization History Hx Tetanus Toxoid Vaccination: No Hx Influenza Vaccination: Yes (2016) Hx Pneumococcal Vaccination: No Review Of Systems Except As Marked, All Systems Reviewed And Found Negative. (As per HPI, otherwise negative) Constitutional: Negative for: Fever, Chills Skin: Positive for: Other (Cellulitis to the both lower legs) Physical Exam - Physical Exam Appears: Well, Non-toxic, Other (Alcohol on breath with slurred speech. Patient obnoxious and uncooperative) Skin: Warm, Dry Head: Normacephalic Extremity: Normal ROM, Tenderness (Mild erythema to both feet extending to the mid tibia region. Mild cellulitis involving both lower extremities. Mildly tender to palpation. ), No Other (No skin break down ) Neurological/Psych: Oriented x3 (Alert) ED Course And Treatment O2 Sat by Pulse Oximetry: 98 (RA) Pulse Ox Interpretation: Normal Medical Decision Making Medical Decision Making: Time: 2124 --Patient was lucid, argumentative, and searching through his bags for a sandwich. Clinically he is not impaired that he would require further observation. --Patient is stable for discharge with Rx for Keflex 500 mg. Given low cost antibiotics and advised to follow up with clinic. Clinical Impression: Cellulitis and abuse of alcohol Disposition - Disposition Referrals: [facility] at [facility] [Outside] Disposition: HOME/ ROUTINE Disposition Time: 00:46 Condition: GOOD Prescriptions: Cephalexin [Keflex] 500 mg PO TID #21 capsule Instructions: Cellulitis (ED), Abuse of Alcohol (ED) Forms: [facility] (Omani) Print Language: GUATEMALAN - Clinical Impression Clinical Impression: Alcohol dependence syndrome, Cellulitis - Scribe Statement Scribe Attestation: Documented by Lillie Keyes, acting as a scribe for Deborah Miller MD. Provider Scribe Attestation: All medical record entries made by the Scribe were at my direction and personally dictated by me. I have reviewed the chart and agree that the record accurately reflects my personal performance of the history, physical exam, medical decision making, and the department course for this patient. I have also personally directed, reviewed, and agree with the discharge instructions and disposition.
== END 2017-07-17 21:33 | disposition home or self-care (01) ==
LOC: C.ER 17:42
DX: F10.20 Alcohol dependence, uncomplicated (principal); L03.116 Cellulitis of left lower limb; L03.115 Cellulitis of right lower limb; Z87.891 Personal history of nicotine dependence

== ENCOUNTER 2017-07-25 18:19 | Emergency (ER) | payer MEDICAID ==
[2017-07-25 19:00] VITALS: BP 109/66; PULSE 88; RESP 20; TEMP 97; O2SAT 96
--- NOTE | 2017-07-25 19:56 | C.PDOC ---
History Of Present Illness 42M presents w intoxication. he is sleeping and when I woke him up he states "I' m drunk." he has no other complaints at this time for me. Time Seen by Provider: 07/25/17 19:52 Chief Complaint (Nursing): Lower Extremity Problem/Injury Past Medical History Vital Signs: Last Vital Signs Temp 97 F L 07/25/17 18:55 Pulse 88 07/25/17 18:55 Resp 20 07/25/17 18:55 BP 109/66 07/25/17 18:55 Pulse Ox 96 07/25/17 19:56 - Medical History PMH: Anxiety, Arthritis (b/l ankle), Depression, Fractures (left leg), Seizures - [facility] Procedures ALCOHOL DETOXIFICATION (10/30/14) APPLICATION OF SPLINT (03/31/13) CLOSURE SKIN & SUBCUTANEOUS NEC (10/16/14) DETOXIFICATION SERVICES FOR SUBSTANCE ABUSE TREATMENT (08/16/16) INDIV BUNDLER FOR SUBSTANCE ABUSE TREATMENT, PSYCHOEDUCATION (08/16/16) INDIV BUNDLER FOR SUBSTANCE ABUSE, COGNITIVE BEHAVIORAL (08/16/16) INDIVID PSYCHOTHERAP NEC (10/14/14) INJECT/INFUSE NEC (09/30/14) TETANUS TOXOID ADMINIST (10/16/14) Family History: States: Unknown Family Hx - Social History Hx Tobacco Use: Yes Hx Alcohol Use: Yes Hx Substance Use: No - Immunization History Hx Tetanus Toxoid Vaccination: No Hx Influenza Vaccination: Yes (2016) Hx Pneumococcal Vaccination: No Review Of Systems Constitutional: Negative for: Fever Eyes: Negative for: Vision Change Cardiovascular: Negative for: Chest Pain Respiratory: Negative for: Cough, Shortness of Breath Gastrointestinal: Negative for: Vomiting, Abdominal Pain Neurological: Negative for: Weakness, Numbness Psych: Negative for: Suicidal ideation Physical Exam - Physical Exam Appears: Unkempt, Other (intoxicated) Skin: Warm, Dry Head: Atraumatic, No Tenderness, No Swelling, No Abrasion, No Laceration Nose: No Epistaxis Neck: Supple Cardiovascular: Rhythm Regular Respiratory: No Decreased Breath Sounds, No Accessory Muscle Use Gastrointestinal/Abdominal: Soft, No Tenderness Extremity: No Deformity Neurological/Psych: Oriented x3, Other (no focal deficits) ED Course And Treatment O2 Sat by Pulse Oximetry: 96 Disposition - Disposition Forms: [facility] (Slovak)
== END 2017-07-25 19:52 | disposition left against medical advice (07) ==
LOC: C.ER 18:19
DX: Z02.89 Encounter for other administrative examinations (principal); M79.604 Pain in right leg

== ENCOUNTER → 2017-07-25 | Emergency (ER) | payer MEDICAID | END | disposition left against medical advice (07) | LOC: C.ER 18:21 | DX: Z02.89 Encounter for other administrative examinations (principal); M79.606 Pain in leg, unspecified ==

== ENCOUNTER 2017-07-31 17:30 | Emergency (ER) | payer MEDICAID ==
--- NOTE | 2017-07-31 19:55 | C.PDOC ---
History Of Present Illness Patient is a 42 y/o male who presents to the ED with a request for a place to stay. Patient admits to drinking alcohol FURNITURE [employer] and denies any abdominal pain or diarrhea. 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 Patient was seen and examined numerous times at [facility]. No other physical complaints at this time. Time Seen by Provider: 07/31/17 19:54 Chief Complaint (Nursing): Abdominal Pain History Per: Patient History/Exam Limitations: no limitations Severity: None Associated Symptoms: denies: Diarrhea Recent travel outside of the [place]: No Past Medical History Reviewed: Historical Data, Nursing Documentation, Vital Signs Vital Signs: Last Vital Signs Temp 98.1 F 07/31/17 22:04 Pulse 76 07/31/17 22:04 Resp 18 07/31/17 22:04 BP 98/63 L 07/31/17 22:04 Pulse Ox 96 07/31/17 22:04 - Medical History PMH: Anxiety, Arthritis (b/l ankle), Depression, Fractures (left leg), Seizures (alcohol related) Denies: Chronic Kidney Disease 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 Surgical History: No Surg Hx - [facility] Procedures ALCOHOL DETOXIFICATION (10/30/14) APPLICATION OF SPLINT (03/31/13) CLOSURE SKIN & SUBCUTANEOUS NEC (10/16/14) DETOXIFICATION SERVICES FOR SUBSTANCE ABUSE TREATMENT (08/16/16) INDIV MAINTENANCE PAINTER APPRENTICE FOR SUBSTANCE ABUSE TREATMENT, PSYCHOEDUCATION (08/16/16) INDIV MAINTENANCE PAINTER APPRENTICE FOR SUBSTANCE ABUSE, COGNITIVE BEHAVIORAL (08/16/16) INDIVID PSYCHOTHERAP NEC (10/14/14) INJECT/INFUSE NEC (09/30/14) TETANUS TOXOID ADMINIST (10/16/14) Family History: States: Unknown Family Hx - Social History Hx Tobacco Use: Yes Hx Alcohol Use: Yes Hx Substance Use: No - Immunization History Hx Tetanus Toxoid Vaccination: No Hx Influenza Vaccination: Yes (2016) Hx Pneumococcal Vaccination: No Review Of Systems Gastrointestinal: Negative for: Abdominal Pain, Diarrhea Musculoskeletal: Positive for: Foot Pain (chronic foot pain; alcohol neuropathy) Neurological: Positive for: Other (EtOH intoxication) Physical Exam - Physical Exam Appears: Well, Non-toxic Skin: Warm, Dry Head: Normacephalic Oral Mucosa: Moist Chest: Symmetrical Cardiovascular: Rhythm Regular, No Murmur Respiratory: No Decreased Breath Sounds, No Rales, No Rhonchi, No Wheezing Gastrointestinal/Abdominal: Bowel Sounds (positive), Soft, No Tenderness Extremity: Capillary Refill (good ), Other (slight decreased sensory to lower extremities; toes good) Neurological/Psych: Oriented x3 ED Course And Treatment O2 Sat by Pulse Oximetry: 98 Pulse Ox Interpretation: Normal Reevaluation Time: 23:15 Reassessment Condition: Improved Disposition Counseled Patient/Family Regarding: Studies Performed, Diagnosis, Need For Followup - Disposition Referrals: [facility] [Outside] Disposition: HOME/ ROUTINE Disposition Time: 19:55 Condition: FAIR Forms: [facility] (French), General Discharge Instructions - Clinical Impression Clinical Impression: Alcohol abuse, Neuropathy - Scribe Statement The provider has reviewed the documentation as recorded by the Scribe Wendi Verduzco All medical record entries made by the Scribe were at my direction and personally dictated by me. I have reviewed the chart and agree that the record accurately reflects my personal performance of the history, physical exam, medical decision making, and the department course for this patient. I have also personally directed, reviewed, and agree with the discharge instructions and disposition.
[2017-07-31 22:06] VITALS: BP 98/63; PULSE 76; RESP 18; TEMP 98.1
[2017-07-31 23:15] VITALS: O2SAT 98
== END 2017-07-31 22:51 | disposition home or self-care (01) ==
LOC: C.ER 17:30
DX: F10.10 Alcohol abuse, uncomplicated (principal); Y90.9 Presence of alcohol in blood, level not specified; G62.9 Polyneuropathy, unspecified

== ENCOUNTER 2017-08-01 19:49 | Emergency (ER) | payer MEDICAID ==
[2017-08-01 20:00] VITALS: TEMP 97.4
--- NOTE | 2017-08-01 20:14 | C.PDOC ---
History Of Present Illness 42 year old male presents to the ER via EMS after being found intoxicated in public. Patient has a Hx of many prior visits with similar presentations. Ambulating freely in the ER with no difficulty. Denies physical complaints at this time. Time Seen by Provider: 08/01/17 20:09 Chief Complaint (Nursing): Substance Abuse History Per: Patient History/Exam Limitations: no limitations Onset/Duration Of Symptoms: Hrs Current Symptoms Are (Timing): Still Present Modifying Factor(s): Alcohol Associated Symptoms: denies: Depression, Suicidal Thoughts, Suicidal Plan Involuntary Hold By: None Recent travel outside of the [place]: No Past Medical History Reviewed: Historical Data, Nursing Documentation, Vital Signs Vital Signs: Last Vital Signs Temp 97.4 F L 08/01/17 19:58 Pulse 80 08/01/17 20:49 Resp 14 08/01/17 20:49 BP 110/74 08/01/17 20:49 Pulse Ox 98 08/01/17 20:49 - Medical History PMH: Anxiety, Arthritis (b/l ankle), Depression, Fractures (left leg), Seizures (alcohol related) - [facility] Procedures ALCOHOL DETOXIFICATION (10/30/14) APPLICATION OF SPLINT (03/31/13) CLOSURE SKIN & SUBCUTANEOUS NEC (10/16/14) DETOXIFICATION SERVICES FOR SUBSTANCE ABUSE TREATMENT (08/16/16) INDIV CONCRETE CARPENTER FOR SUBSTANCE ABUSE TREATMENT, PSYCHOEDUCATION (08/16/16) INDIV CONCRETE CARPENTER FOR SUBSTANCE ABUSE, COGNITIVE BEHAVIORAL (08/16/16) INDIVID PSYCHOTHERAP NEC (10/14/14) INJECT/INFUSE NEC (09/30/14) TETANUS TOXOID ADMINIST (10/16/14) Family History: States: Unknown Family Hx - Social History Hx Tobacco Use: Yes Hx Alcohol Use: Yes Hx Substance Use: No - Immunization History Hx Tetanus Toxoid Vaccination: No Hx Influenza Vaccination: Yes (2017) Hx Pneumococcal Vaccination: No Review Of Systems Constitutional: Negative for: Fever, Chills Gastrointestinal: Negative for: Nausea, Vomiting, Abdominal Pain, Diarrhea Skin: Negative for: Lesions, Bruising Physical Exam - Physical Exam Appears: Non-toxic, No Acute Distress, Other (ETOH on breath. No signs of injury.) Skin: Normal Color, Warm, Dry Head: Atraumatic, Normacephalic Eye(s): bilateral: Normal Inspection Oral Mucosa: Moist Neck: Normal, No Midline Cervical Tenderness, No Paracervical Tenderness, Supple Chest: Symmetrical, No Tenderness Cardiovascular: Rhythm Regular Respiratory: Normal Breath Sounds, No Rales, No Rhonchi, No Wheezing Gastrointestinal/Abdominal: Soft, No Tenderness Neurological/Psych: Oriented x3, Normal Speech Gait: Steady (Ambulating freely without difficulty) ED Course And Treatment O2 Sat by Pulse Oximetry: 99 (Room air) Pulse Ox Interpretation: Normal Medical Decision Making Medical Decision Making: typical, almost nightly alcohol abuse homeless no detox available tonight. Disposition Doctor Will See Patient In The: Office Counseled Patient/Family Regarding: Studies Performed, Diagnosis - Disposition Referrals: Alcoholics Anonymous [Outside] [facility] [Outside] [facility] [Outside] [facility] [employer] [facility] [Outside] Disposition: HOME/ ROUTINE Disposition Time: 20:16 Condition: GOOD Additional Instructions: see nightly sober residential placement. seek AA and Detox Instructions: Abuse of Alcohol (ED) Forms: [facility] (Italian) - Clinical Impression Clinical Impression: Alcohol abuse - Scribe Statement The provider has reviewed the documentation as recorded by the Scribe Ricky Ruiz All medical record entries made by the Scribe were at my direction and personally dictated by me. I have reviewed the chart and agree that the record accurately reflects my personal performance of the history, physical exam, medical decision making, and the department course for this patient. I have also personally directed, reviewed, and agree with the discharge instructions and disposition.
[2017-08-01 20:51] VITALS: BP 110/74; PULSE 80; RESP 14
[2017-08-02 00:52] VITALS: O2SAT 99
== END 2017-08-01 20:50 | disposition home or self-care (01) ==
LOC: C.ER 19:49
DX: F10.10 Alcohol abuse, uncomplicated (principal); Z59.0 Homelessness; Z72.0 Tobacco use

== ENCOUNTER 2017-08-16 00:31 | Emergency (ER) | payer OTHER ==
--- NOTE | 2017-08-16 02:05 | C.PDOC ---
History Of Present Illness 42 year old male is brought to the ED by EMS for alcohol intoxication. Patient has multiple prior visits to the ED for the same complaints. Patient admits to drinking alcohol today and states he wants a place to sleep. Patient denies any physical complaint at this time. Time Seen by Provider: 08/16/17 02:05 Chief Complaint (Nursing): Substance Abuse History Per: Patient, EMS History/Exam Limitations: intoxication Onset/Duration Of Symptoms: Hrs Current Symptoms Are (Timing): Still Present Suicide/Self Injury Attempted (Context): None Modifying Factor(s): Alcohol Associated Symptoms: denies: Depression, Suicidal Thoughts, Suicidal Plan Recent travel outside of the [place]: No Additional History Per: Patient, EMS Past Medical History Reviewed: Historical Data, Nursing Documentation, Vital Signs - Medical History PMH: Anxiety, Arthritis (b/l ankle), Depression, Fractures (left leg), Seizures (alcohol related) Denies: Chronic Kidney Disease Surgical History: No Surg Hx - [facility] Procedures ALCOHOL DETOXIFICATION (10/30/14) APPLICATION OF SPLINT (03/31/13) CLOSURE SKIN & SUBCUTANEOUS NEC (10/16/14) DETOXIFICATION SERVICES FOR SUBSTANCE ABUSE TREATMENT (08/16/16) INDIV PARTNER ALLIANCE MANAGER FOR SUBSTANCE ABUSE TREATMENT, PSYCHOEDUCATION (08/16/16) INDIV PARTNER ALLIANCE MANAGER FOR SUBSTANCE ABUSE, COGNITIVE BEHAVIORAL (08/16/16) INDIVID PSYCHOTHERAP NEC (10/14/14) INJECT/INFUSE NEC (09/30/14) TETANUS TOXOID ADMINIST (10/16/14) Family History: States: Unknown Family Hx - Social History Hx Tobacco Use: Yes (heavy smoker) Hx Alcohol Use: Yes Hx Substance Use: No - Immunization History Hx Tetanus Toxoid Vaccination: No Hx Influenza Vaccination: Yes (2017) Hx Pneumococcal Vaccination: No Review Of Systems Constitutional: Negative for: Fever, Chills Cardiovascular: Negative for: Chest Pain, Palpitations Respiratory: Negative for: Cough, Shortness of Breath Gastrointestinal: Negative for: Vomiting, Abdominal Pain Skin: Negative for: Rash Neurological: Negative for: Weakness, Numbness Psych: Negative for: Depression, Suicidal ideation Physical Exam - Physical Exam Appears: Non-toxic, No Acute Distress Skin: Warm, Dry Head: Normacephalic Oral Mucosa: Moist Chest: Symmetrical Cardiovascular: Rhythm Regular, No Murmur Respiratory: No Decreased Breath Sounds, No Rales, No Rhonchi, No Wheezing Gastrointestinal/Abdominal: Soft, No Tenderness, No Guarding, No Rebound Neurological/Psych: Oriented x3, Normal Speech, Normal Cognition ED Course And Treatment O2 Sat by Pulse Oximetry: 98 Pulse Ox Interpretation: Normal Reevaluation Time: 05:46 Reassessment Condition: Improved Disposition Counseled Patient/Family Regarding: Studies Performed, Diagnosis, Need For Followup - Disposition Referrals: [facility] [Outside] Disposition: HOME/ ROUTINE Disposition Time: 02:05 Condition: FAIR Instructions: Alcohol Intoxication (DC) Forms: [facility] (Botswanan) - Clinical Impression Clinical Impression: Alcohol intoxication, Alcohol use - Scribe Statement The provider has reviewed the documentation as recorded by the Scribe Cornell Herrmann All medical record entries made by the Scribe were at my direction and personally dictated by me. I have reviewed the chart and agree that the record accurately reflects my personal performance of the history, physical exam, medical decision making, and the department course for this patient. I have also personally directed, reviewed, and agree with the discharge instructions and disposition.
[2017-08-16 05:46] VITALS: O2SAT 98
== END 2017-08-16 05:51 | disposition home or self-care (01) ==
LOC: C.ER 00:31
DX: F10.129 Alcohol abuse with intoxication, unspecified (principal); F17.210 Nicotine dependence, cigarettes, uncomplicated

== ENCOUNTER 2017-09-03 22:55 | Emergency (ER) | payer MEDICAID, OTHER ==
[2017-09-03 23:23] VITALS: BP 100/67; PULSE 90; RESP 20; TEMP 97.6; O2SAT 98
--- NOTE | 2017-09-03 23:48 | C.PDOC ---
History Of Present Illness 42yo male, brought to ED by EMS for evaluation after patient was found publicly intoxicated. Patient reports he is sober today and is requesting place to stay. NO fever, chills, chest pain, shortness of breath or abdominal pain. No complaints. Time Seen by Provider: 09/03/17 23:43 Chief Complaint (Nursing): Substance Abuse History Per: Patient History/Exam Limitations: no limitations Onset/Duration Of Symptoms: Sudden Onset Past Medical History Reviewed: Historical Data, Nursing Documentation, Vital Signs Vital Signs: Last Vital Signs Temp 97.6 F 09/03/17 23:23 Pulse 90 09/03/17 23:23 Resp 20 09/03/17 23:23 BP 100/67 09/03/17 23:23 Pulse Ox 98 09/03/17 23:57 - Medical History PMH: Anxiety, Arthritis (b/l ankle), Depression, Fractures (left leg), Seizures (alcohol related) Denies: Diabetes, Hepatitis, HIV, HTN, Chronic Kidney Disease, Sexually Transmitted Disease - [facility] Procedures ALCOHOL DETOXIFICATION (10/30/14) APPLICATION OF SPLINT (03/31/13) CLOSURE SKIN & SUBCUTANEOUS NEC (10/16/14) DETOXIFICATION SERVICES FOR SUBSTANCE ABUSE TREATMENT (08/16/16) INDIV CUSTOMER SERVICE TECHNICIAN FOR SUBSTANCE ABUSE TREATMENT, PSYCHOEDUCATION (08/16/16) INDIV CUSTOMER SERVICE TECHNICIAN FOR SUBSTANCE ABUSE, COGNITIVE BEHAVIORAL (08/16/16) INDIVID PSYCHOTHERAP NEC (10/14/14) INJECT/INFUSE NEC (09/30/14) TETANUS TOXOID ADMINIST (10/16/14) Family History: States: Unknown Family Hx - Social History Hx Tobacco Use: Yes (heavy smoker) Hx Alcohol Use: Yes Hx Substance Use: No - Immunization History Hx Tetanus Toxoid Vaccination: No Hx Influenza Vaccination: Yes (2016) Hx Pneumococcal Vaccination: No Review Of Systems Except As Marked, All Systems Reviewed And Found Negative. Constitutional: Negative for: Fever, Chills Cardiovascular: Negative for: Chest Pain Respiratory: Negative for: Shortness of Breath Gastrointestinal: Negative for: Abdominal Pain Physical Exam - Physical Exam Appears: Non-toxic, Unkempt (disheveled, foul smelling) Skin: Normal Color Head: Atraumatic, Normacephalic Eye(s): bilateral: Normal Inspection Oral Mucosa: Other (alcohol on breath) Neck: Supple Chest: Symmetrical Cardiovascular: Rhythm Regular Respiratory: Normal Breath Sounds, No Wheezing Neurological/Psych: Oriented x3 Gait: Steady ED Course And Treatment O2 Sat by Pulse Oximetry: 98 (RA) Pulse Ox Interpretation: Normal Medical Decision Making Medical Decision Making: homeless, alochol abuse, malingering, no acute issues Disposition Doctor Will See Patient In The: Office Counseled Patient/Family Regarding: Studies Performed, Diagnosis - Disposition Referrals: Alcoholics Anonymous [Outside] [facility] [Outside] [facility] [Outside] [place] [employer] [Outside] Disposition: HOME/ ROUTINE Disposition Time: 23:54 Condition: GOOD Instructions: Alcohol Abuse and Alcoholism (DC) Forms: [facility] (Bhutanese) - Clinical Impression Clinical Impression: Alcohol abuse, Malingering - Scribe Statement The provider has reviewed the documentation as recorded by the Scribe (Caroline Ramirez) Provider Attestation: All medical record entries made by the Scribe were at my direction and personally dictated by me. I have reviewed the chart and agree that the record accurately reflects my personal performance of the history, physical exam, medical decision making, and the department course for this patient. I have also personally directed, reviewed, and agree with the discharge instructions and disposition.
== END 2017-09-04 00:36 | disposition home or self-care (01) ==
LOC: C.ER 22:55
DX: F10.10 Alcohol abuse, uncomplicated (principal); Y90.9 Presence of alcohol in blood, level not specified; Z76.5 Malingerer [conscious simulation]

== ENCOUNTER 2017-11-06 19:33 | Emergency (ER) | payer OTHER ==
[2017-11-06 20:19] VITALS: TEMP 98.7
--- NOTE | 2017-11-06 20:32 | C.PDOC ---
History Of Present Illness 42 year old male, with no significant past medical history, who was brought to the emergency department via EMS after patient was found appearing intoxicated. Patient is well known to the ED for prior visits of ETOH intoxication. History limited due to ETOH intoxication. PMD: None provided. Time Seen by Provider: 11/06/17 19:43 Chief Complaint (Nursing): Substance Abuse History Per: Patient, EMS History/Exam Limitations: intoxication (ETOH) Onset/Duration Of Symptoms: Hrs (AUTO PARTS COUNTER PERSON) Current Symptoms Are (Timing): Still Present Suicide/Self Injury Attempted (Context): None Involuntary Hold By: None Past Medical History Reviewed: Historical Data, Nursing Documentation, Vital Signs Vital Signs: Last Vital Signs Temp 98.7 F 11/06/17 20:15 Pulse 69 11/07/17 04:34 Resp 18 11/07/17 04:34 BP 91/57 L 11/07/17 04:34 Pulse Ox 99 11/07/17 04:34 - Medical History PMH: Anxiety, Arthritis (b/l ankle), Depression, Fractures (left leg), Seizures (alcohol related) Denies: Diabetes, Hepatitis, HIV, HTN, Chronic Kidney Disease, Sexually Transmitted Disease Surgical History: No Surg Hx Denies: Appendectomy - [facility] Procedures ALCOHOL DETOXIFICATION (10/30/14) APPLICATION OF SPLINT (03/31/13) CLOSURE SKIN & SUBCUTANEOUS NEC (10/16/14) DETOXIFICATION SERVICES FOR SUBSTANCE ABUSE TREATMENT (08/16/16) INDIV CRIB CLERK FOR SUBSTANCE ABUSE TREATMENT, PSYCHOEDUCATION (08/16/16) INDIV CRIB CLERK FOR SUBSTANCE ABUSE, COGNITIVE BEHAVIORAL (08/16/16) INDIVID PSYCHOTHERAP NEC (10/14/14) INJECT/INFUSE NEC (09/30/14) TETANUS TOXOID ADMINIST (10/16/14) Family History: States: Unknown Family Hx - Social History Hx Tobacco Use: Yes (heavy smoker) Hx Alcohol Use: Yes Hx Substance Use: No - Immunization History Hx Tetanus Toxoid Vaccination: No Hx Influenza Vaccination: Yes (2017) Hx Pneumococcal Vaccination: Yes Review Of Systems Review Of Systems: ROS cannot be obtained secondary to pt's inabilty to answer questions. (ETOH intoxication) Physical Exam - Physical Exam Appears: Unkempt, Other (ETOH odor) Skin: Normal Color, Warm, Dry Head: Atraumatic, Normacephalic Eye(s): bilateral: Normal Inspection, PERRL, EOMI Neck: Normal ROM Cardiovascular: Rhythm Regular, No Murmur Respiratory: Normal Breath Sounds, No Wheezing Gastrointestinal/Abdominal: Normal Exam, Soft, No Tenderness Extremity: Normal ROM (upper and lower extremities), No Deformity, No Swelling, Other (legs covered in dry feces) Neurological/Psych: Other (arousable to verbal stimuli) ED Course And Treatment O2 Sat by Pulse Oximetry: 99 (RA) Pulse Ox Interpretation: Normal Progress Note: Plan: Glucose, Blood POC. Patient has been in the ED for ETOH intoxication. Disposition Counseled Patient/Family Regarding: Diagnosis, Need For Followup - Disposition Referrals: [facility] [Outside] Disposition: HOME/ ROUTINE Disposition Time: 06:00 Condition: STABLE Instructions: Alcohol Abuse and Alcoholism (DC) Forms: [facility] (Khmer) Print Language: KAZAKH - Clinical Impression Clinical Impression: Alcohol intoxication - Scribe Statement The provider has reviewed the documentation as recorded by the Scribe En Gallardo
[2017-11-07 04:37] VITALS: RESP 18
[2017-11-07 06:20] VITALS: BP 102/61; PULSE 72; O2SAT 95
== END 2017-11-07 06:18 | disposition home or self-care (01) ==
LOC: C.ER 19:33
DX: F10.129 Alcohol abuse with intoxication, unspecified (principal); F17.200 Nicotine dependence, unspecified, uncomplicated

== ENCOUNTER 2017-11-19 12:43 | Emergency (ER) | payer OTHER ==
[2017-11-19 13:09] VITALS: BP 123/72; PULSE 69; RESP 201; TEMP 97.4; O2SAT 100
--- NOTE | 2017-11-19 13:34 | C.PDOC ---
History Of Present Illness 42 y/o male brought to ER by ambulance for public intoxication. Patient is complaining of chronic left leg discomfort. Patient denies having suicidal ideation and homicidal ideation. Of note, patient is well known to [facility] ER as he has visited the ER multiple times in the past for substance abuse. Time Seen by Provider: 11/19/17 13:32 Chief Complaint (Nursing): Substance Abuse History Per: Patient History/Exam Limitations: no limitations Onset/Duration Of Symptoms: Days Current Symptoms Are (Timing): Still Present Past Medical History Reviewed: Historical Data, Nursing Documentation, Vital Signs Vital Signs: Last Vital Signs Temp 97.4 F L 11/19/17 13:07 Pulse 69 11/19/17 13:07 Resp 201 H 11/19/17 13:07 BP 123/72 11/19/17 13:07 Pulse Ox 100 11/19/17 15:31 - Medical History PMH: Anxiety, Arthritis (b/l ankle), Depression, Fractures (left leg), Seizures (alcohol related) Denies: Diabetes, Hepatitis, HIV, HTN, Chronic Kidney Disease, Sexually Transmitted Disease Surgical History: Denies: Appendectomy - [facility] Procedures ALCOHOL DETOXIFICATION (10/30/14) APPLICATION OF SPLINT (03/31/13) CLOSURE SKIN & SUBCUTANEOUS NEC (10/16/14) DETOXIFICATION SERVICES FOR SUBSTANCE ABUSE TREATMENT (08/16/16) INDIV SHOT BLASTER FOR SUBSTANCE ABUSE TREATMENT, PSYCHOEDUCATION (08/16/16) INDIV SHOT BLASTER FOR SUBSTANCE ABUSE, COGNITIVE BEHAVIORAL (08/16/16) INDIVID PSYCHOTHERAP NEC (10/14/14) INJECT/INFUSE NEC (09/30/14) TETANUS TOXOID ADMINIST (10/16/14) Family History: States: No Known Family Hx - Social History Hx Tobacco Use: Yes (heavy smoker) Hx Alcohol Use: Yes Hx Substance Use: No - Immunization History Hx Tetanus Toxoid Vaccination: No Hx Influenza Vaccination: Yes (2016) Hx Pneumococcal Vaccination: Yes Review Of Systems Except As Marked, All Systems Reviewed And Found Negative. Constitutional: Negative for: Fever, Chills Physical Exam - Physical Exam Appears: No Acute Distress, Other (disheveled, foul- smelling) Skin: Normal Color, Warm, Dry Head: Atraumatic, Normacephalic Eye(s): bilateral: Normal Inspection Nose: Normal Oral Mucosa: Moist, Other (ETOH on breath) Neck: Supple Chest: Symmetrical Cardiovascular: Rhythm Regular Respiratory: Normal Breath Sounds, No Rales, No Rhonchi, No Wheezing Gastrointestinal/Abdominal: Normal Exam, Soft, No Tenderness Extremity: Normal ROM, No Tenderness (left lower leg), No Pedal Edema (left lower leg), No Swelling (left lower leg) Neurological/Psych: Oriented x3, Normal Speech ED Course And Treatment O2 Sat by Pulse Oximetry: 100 (RA) Pulse Ox Interpretation: Normal Medical Decision Making Medical Decision Making: alcohol abuse, malingering no new leg issues Disposition Doctor Will See Patient In The: Office Counseled Patient/Family Regarding: Studies Performed, Diagnosis - Disposition Referrals: Alcoholics Anonymous [Outside] [facility] [Outside] [facility] [Outside] Disposition: HOME/ ROUTINE Disposition Time: 13:34 Condition: GOOD Additional Instructions: seek AA, seek nightly correction placment seek outpatient psych services for your underlying psych issues. Instructions: Alcohol Abuse and Alcoholism (DC) Forms: [facility] (Hungarian) - Clinical Impression Clinical Impression: Alcohol abuse with uncomplicated intoxication - Scribe Statement The provider has reviewed the documentation as recorded by the Annieibe Winston Sharma Provider Attestation: All medical record entries made by the Scribe were at my direction and personally dictated by me. I have reviewed the chart and agree that the record accurately reflects my personal performance of the history, physical exam, medical decision making, and the department course for this patient. I have also personally directed, reviewed, and agree with the discharge instructions and disposition.
== END 2017-11-19 13:45 | disposition home or self-care (01) ==
LOC: C.ER 12:43
DX: F10.120 Alcohol abuse with intoxication, uncomplicated (principal); F17.200 Nicotine dependence, unspecified, uncomplicated

== ENCOUNTER 2018-01-24 19:31 | Emergency (ER) | payer OTHER ==
[2018-01-24 19:35] VITALS: RESP 16
--- NOTE | 2018-01-24 21:06 | C.PDOC ---
History Of Present Illness 42 year old male is brought into the emergency department by ambulance for intoxication. Patient is a well-known homeless alcoholic. Time Seen by Provider: 01/24/18 19:34 Chief Complaint (Nursing): Substance Abuse History Per: Patient History/Exam Limitations: no limitations Onset/Duration Of Symptoms: Hrs Current Symptoms Are (Timing): Still Present Suicide/Self Injury Attempted (Context): None Modifying Factor(s): Alcohol Associated Symptoms: Other (intoxication). denies: Suicidal Thoughts, Suicidal Plan Past Medical History Reviewed: Historical Data, Nursing Documentation, Vital Signs Vital Signs: Last Vital Signs Temp 97.6 F 01/24/18 19:32 Pulse 97 H 01/24/18 19:32 Resp 16 01/24/18 19:32 BP 142/89 01/24/18 19:32 Pulse Ox 98 01/24/18 21:08 - Medical History PMH: Anxiety, Arthritis (b/l ankle), Depression, Fractures (left leg), Seizures (alcohol related) Denies: Diabetes, Hepatitis, HIV, HTN, Chronic Kidney Disease, Sexually Transmitted Disease Surgical History: No Surg Hx Denies: Appendectomy - [facility] Procedures ALCOHOL DETOXIFICATION (10/30/14) APPLICATION OF SPLINT (03/31/13) CLOSURE SKIN & SUBCUTANEOUS NEC (10/16/14) DETOXIFICATION SERVICES FOR SUBSTANCE ABUSE TREATMENT (08/16/16) INDIV COMPRESSOR OPERATOR FOR SUBSTANCE ABUSE TREATMENT, PSYCHOEDUCATION (08/16/16) INDIV COMPRESSOR OPERATOR FOR SUBSTANCE ABUSE, COGNITIVE BEHAVIORAL (08/16/16) INDIVID PSYCHOTHERAP NEC (10/14/14) INJECT/INFUSE NEC (09/30/14) TETANUS TOXOID ADMINIST (10/16/14) Family History: States: No Known Family Hx - Social History Hx Tobacco Use: Yes (heavy smoker) Hx Alcohol Use: Yes Hx Substance Use: No - Immunization History Hx Tetanus Toxoid Vaccination: No Hx Influenza Vaccination: Yes (2017) Hx Pneumococcal Vaccination: Yes Review Of Systems Neurological: Positive for: Altered Mental Status (intoxication) Psych: Negative for: Suicidal ideation Physical Exam - Physical Exam Appears: Non-toxic, No Acute Distress, Unkempt, Other (disheveled, foul-smelling ) Head: Atraumatic, Normacephalic Eye(s): bilateral: Normal Inspection Nose: Normal Oral Mucosa: Moist, Other (alcohol on breath) Neck: Normal, Supple Chest: Symmetrical, No Tenderness Cardiovascular: Rhythm Regular, No Murmur Respiratory: Normal Breath Sounds, No Rales, No Rhonchi, No Wheezing Gastrointestinal/Abdominal: Normal Exam, Soft, No Tenderness, No Guarding, No Rebound Extremity: Normal ROM ED Course And Treatment O2 Sat by Pulse Oximetry: 98 (RA) Pulse Ox Interpretation: Normal Medical Decision Making Medical Decision Making: typical alcohol abuse, no acute issues. Disposition - Disposition Disposition Time: 01:00 Condition: GOOD Forms: [facility] (Scottish) - Clinical Impression Clinical Impression: Alcohol abuse with uncomplicated intoxication - Scribe Statement The provider has reviewed the documentation as recorded by the Scribe (Rob Cook) Provider Attestation: All medical record entries made by the Scribe were at my direction and personally dictated by me. I have reviewed the chart and agree that the record accurately reflects my personal performance of the history, physical exam, medical decision making, and the department course for this patient. I have also personally directed, reviewed, and agree with the discharge instructions and disposition. Physician Patient Turnover Patient Signed Over To: Hannah Roche Handoff Comments: dispo in AM when sober
[2018-01-25 05:04] VITALS: BP 142/83; PULSE 91; TEMP 97.9; O2SAT 97
== END 2018-01-25 05:05 | disposition home or self-care (01) ==
LOC: C.ER 19:31
DX: F10.120 Alcohol abuse with intoxication, uncomplicated (principal); Y90.9 Presence of alcohol in blood, level not specified

== ENCOUNTER 2018-01-29 19:45 | Emergency (ER) | payer OTHER | END 2018-01-29 19:59 | disposition left against medical advice (07) | LOC: C.ER 19:45 | DX: Z02.89 Encounter for other administrative examinations (principal) ==

== ENCOUNTER 2018-01-29 21:42 | Emergency (ER) | payer OTHER ==
[2018-01-29 22:19] VITALS: O2SAT 97
--- NOTE | 2018-01-29 23:17 | C.PDOC ---
Time Seen by Provider: 01/29/18 23:17 Chief Complaint (Nursing): Medical Clearance Past Medical History Vital Signs: Last Vital Signs Temp 97.2 F L 01/29/18 22:16 Pulse 88 01/29/18 22:16 Resp 16 01/29/18 22:16 BP 138/78 01/29/18 22:16 Pulse Ox 97 01/29/18 22:16 - Medical History PMH: Anxiety, Arthritis (b/l ankle), Depression, Fractures (left leg), Seizures (alcohol related) Denies: Diabetes, Hepatitis, HIV, HTN, Chronic Kidney Disease, Sexually Transmitted Disease Surgical History: Denies: Appendectomy - [facility] Procedures ALCOHOL DETOXIFICATION (10/30/14) APPLICATION OF SPLINT (03/31/13) CLOSURE SKIN & SUBCUTANEOUS NEC (10/16/14) DETOXIFICATION SERVICES FOR SUBSTANCE ABUSE TREATMENT (08/16/16) INDIV TRACK INSPECTING SUPERVISOR FOR SUBSTANCE ABUSE TREATMENT, PSYCHOEDUCATION (08/16/16) INDIV TRACK INSPECTING SUPERVISOR FOR SUBSTANCE ABUSE, COGNITIVE BEHAVIORAL (08/16/16) INDIVID PSYCHOTHERAP NEC (10/14/14) INJECT/INFUSE NEC (09/30/14) TETANUS TOXOID ADMINIST (10/16/14) - Social History Hx Tobacco Use: Yes (heavy smoker) Hx Alcohol Use: Yes Hx Substance Use: No - Immunization History Hx Tetanus Toxoid Vaccination: No Hx Influenza Vaccination: Yes (2016) Hx Pneumococcal Vaccination: Yes ED Course And Treatment O2 Sat by Pulse Oximetry: 97 Disposition Counseled Patient/Family Regarding: Studies Performed, Diagnosis - Disposition Disposition Time: 23:17
--- NOTE | 2018-01-29 23:18 | C.PDOC ---
History Of Present Illness Patient brought in via EMS after being found intoxicated and sleeping on the street. Denies physical complaints at this time. Time Seen by Provider: 01/29/18 23:17 Chief Complaint (Nursing): Medical Clearance History Per: Patient History/Exam Limitations: no limitations Onset/Duration Of Symptoms: Hrs Current Symptoms Are (Timing): Still Present Suicide/Self Injury Attempted (Context): None Modifying Factor(s): Alcohol Severity: None Pain Scale Rating Of: 0 Associated Symptoms: denies: Depression, Suicidal Thoughts Involuntary Hold By: None Recent travel outside of the [place]: No Past Medical History Reviewed: Historical Data, Nursing Documentation, Vital Signs Vital Signs: Last Vital Signs Temp 97.2 F L 01/29/18 22:16 Pulse 88 01/29/18 22:16 Resp 16 01/29/18 22:16 BP 138/78 01/29/18 22:16 Pulse Ox 97 01/29/18 23:24 - Medical History PMH: Anxiety, Arthritis (b/l ankle), Depression, Fractures (left leg), Seizures (alcohol related) Denies: Diabetes, Hepatitis, HIV, HTN, Chronic Kidney Disease, Sexually Transmitted Disease Surgical History: Denies: Appendectomy - [facility] Procedures ALCOHOL DETOXIFICATION (10/30/14) APPLICATION OF SPLINT (03/31/13) CLOSURE SKIN & SUBCUTANEOUS NEC (10/16/14) DETOXIFICATION SERVICES FOR SUBSTANCE ABUSE TREATMENT (08/16/16) INDIV CITY SECRETARY FOR SUBSTANCE ABUSE TREATMENT, PSYCHOEDUCATION (08/16/16) INDIV CITY SECRETARY FOR SUBSTANCE ABUSE, COGNITIVE BEHAVIORAL (08/16/16) INDIVID PSYCHOTHERAP NEC (10/14/14) INJECT/INFUSE NEC (09/30/14) TETANUS TOXOID ADMINIST (10/16/14) Family History: States: No Known Family Hx - Social History Hx Tobacco Use: Yes (heavy smoker) Hx Alcohol Use: Yes Hx Substance Use: No - Immunization History Hx Tetanus Toxoid Vaccination: No Hx Influenza Vaccination: Yes (2016) Hx Pneumococcal Vaccination: Yes Review Of Systems Constitutional: Negative for: Fever, Chills Cardiovascular: Negative for: Chest Pain, Palpitations Respiratory: Negative for: Cough, Shortness of Breath Gastrointestinal: Negative for: Nausea, Vomiting Neurological: Negative for: Weakness, Numbness Physical Exam - Physical Exam Appears: Non-toxic, Other (ETOH on breath, no sign of injury) Skin: Warm, Dry Head: Normacephalic Oral Mucosa: Moist Chest: Symmetrical, No Tenderness Cardiovascular: Rhythm Regular Respiratory: No Rales, No Rhonchi, No Wheezing Gastrointestinal/Abdominal: Soft, No Tenderness Neurological/Psych: Oriented x3 ED Course And Treatment O2 Sat by Pulse Oximetry: 97 (Room air) Pulse Ox Interpretation: Normal Reevaluation Time: 04:24 Reassessment Condition: Improved Disposition Counseled Patient/Family Regarding: Studies Performed, Diagnosis, Need For Followup - Disposition Referrals: [facility] at [facility] [Outside] Disposition: HOME/ ROUTINE Disposition Time: 23:17 Condition: FAIR Instructions: Alcohol Abuse and Alcoholism (DC) Forms: [employer] (Danish) - Clinical Impression Clinical Impression: Alcohol intoxication - Scribe Statement The provider has reviewed the documentation as recorded by the Scribe Ricky Ruiz All medical record entries made by the Scribe were at my direction and personally dictated by me. I have reviewed the chart and agree that the record accurately reflects my personal performance of the history, physical exam, medical decision making, and the department course for this patient. I have also personally directed, reviewed, and agree with the discharge instructions and disposition.
[2018-01-30 05:32] VITALS: BP 131/75; PULSE 94; RESP 20; TEMP 98.4
== END 2018-01-30 05:32 | disposition home or self-care (01) ==
LOC: C.ER 21:42
DX: F10.129 Alcohol abuse with intoxication, unspecified (principal)

== ENCOUNTER 2018-06-08 21:00 | Emergency (ER) | payer SELFPAY ==
[2018-06-08 21:00] VITALS: BMI 25.8
--- NOTE | 2018-06-08 23:30 | C.PDOC ---
History Of Present Illness 42 year old homeless male presents to the ER with a complaint of bilateral foot pain. Denies weakness, numbness, or recent injury. Time Seen by Provider: 06/08/18 21:57 Chief Complaint (Nursing): Lower Extremity Problem/Injury History Per: Patient History/Exam Limitations: no limitations Onset/Duration Of Symptoms: Days Current Symptoms Are (Timing): Still Present Recent travel outside of the [place]: No Past Medical History Reviewed: Historical Data, Nursing Documentation, Vital Signs Vital Signs: Last Vital Signs Temp 98.2 F 06/08/18 21:32 Pulse 92 H 06/08/18 21:32 Resp 20 06/08/18 21:32 BP 163/92 H 06/08/18 21:32 Pulse Ox 100 06/08/18 21:32 - Medical History PMH: Anxiety, Arthritis (b/l ankle), Depression, Fractures (left leg), Seizures (alcohol related) Denies: Diabetes, Hepatitis, HIV, HTN, Chronic Kidney Disease, Sexually Transmitted Disease Surgical History: Denies: Appendectomy - [facility] Procedures ALCOHOL DETOXIFICATION (10/30/14) APPLICATION OF SPLINT (03/31/13) CLOSURE SKIN & SUBCUTANEOUS NEC (10/16/14) DETOXIFICATION SERVICES FOR SUBSTANCE ABUSE TREATMENT (08/16/16) INDIV CAR WORKER FOR SUBSTANCE ABUSE TREATMENT, PSYCHOEDUCATION (08/16/16) INDIV CAR WORKER FOR SUBSTANCE ABUSE, COGNITIVE BEHAVIORAL (08/16/16) INDIVID PSYCHOTHERAP NEC (10/14/14) INJECT/INFUSE NEC (09/30/14) TETANUS TOXOID ADMINIST (10/16/14) Family History: States: Unknown Family Hx - Social History Hx Tobacco Use: Yes (heavy smoker) Hx Alcohol Use: Yes Hx Substance Use: No - Immunization History Hx Tetanus Toxoid Vaccination: No Hx Influenza Vaccination: Yes (2017) Hx Pneumococcal Vaccination: Yes Review Of Systems Musculoskeletal: Positive for: Foot Pain (Bilateral) Neurological: Negative for: Weakness, Numbness Physical Exam - Physical Exam Appears: Non-toxic, Other (Poor hygiene) Skin: Warm, Dry Head: Atraumatic, Normacephalic Eye(s): bilateral: Normal Inspection Extremity: Capillary Refill (<2 seconds), Other (Thick flaky layers of dirt material to bilateral legs with overgrown skin and toenails. Hyperpigmentation to left toes. No necrosis or gangrene.) Pulses: Left Dorsalis Pedis: Normal, Right Dorsalis Pedis: Normal Neurological/Psych: Oriented x3, Normal Speech, Normal Motor, Normal Sensation Gait: Steady ED Course And Treatment - Laboratory Results Result Diagrams: 06/09/18 01:24 06/09/18 06:02 O2 Sat by Pulse Oximetry: 100 (Room air) Pulse Ox Interpretation: Normal Progress Note: Patient presents very unkempt, advised to shower and cleanse feet patient agrees. New clothes given, patient is requesting to sleep a while before being discharged, will allow to sleep. While in ED pt became restless,moaning, appeared a bit disoriented. no syncope. VSS, accucheck NL. Labs ordered IVF ordered , librium. Pt with Na 123, 2 L NS IV ordered, repeat NA 127. Pt awake, alert, ambulatory in ED with normal vitals and is stable for discharge with instructions to follow up at the clinic. Pt advised to seek fdc Disposition - Disposition Referrals: [facility] at [facility] [Outside] Disposition: HOME/ ROUTINE Disposition Time: 00:43 Condition: STABLE Additional Instructions: Please find a fdc Return as needed Forms: [employer] (Mongolian) - Clinical Impression Clinical Impression: Foot pain, bilateral, Homelessness - PA / SURGEON/PRESIDENT / Resident Statement MD/DO has reviewed & agrees with the documentation as recorded. - Scribe Statement The provider has reviewed the documentation as recorded by the Scribe Ricky Ruiz All medical record entries made by the Scribe were at my direction and personally dictated by me. I have reviewed the chart and agree that the record accurately reflects my personal performance of the history, physical exam, m edical decision making, and the department course for this patient. I have also personally directed, reviewed, and agree with the discharge instructions and disposition.
[2018-06-09 01:31] LABS: BASO # 0.1 K/uL (0.0-0.2); BASO % 1.2 % (0.0-2.0); EOS # 0.2 K/uL (0.0-0.7); EOS % 2.3 % (0.0-4.0); HEMOGLOBIN 13.1 g/dL (12.0-18.0); LYMPH % 28.3 % (20.0-40.0); MEAN CELL VOLUME 97.1 fL (80.0-94.0); MEAN CORPUSCULAR HEMOGLOBIN 33.3 pg (27.0-31.0); MEAN CORPUSCULAR HGB CONC 34.3 g/dL (33.0-37.0); MEAN PLATELET VOLUME 6.7 fL (7.2-11.7); MONO # 0.9 K/uL (0.0-0.8); MONO % 12.2 % (0.0-10.0); NRBC % 0.1 % (0.0-2.0); RBC 3.94 Mil/uL (4.40-5.90); RED CELL DISTRIBUTION WIDTH 12.4 % (11.5-14.5); WHITE BLOOD COUNT 7.2 K/uL (4.8-10.8)
[2018-06-09 01:45] LABS: ALB/GLOB RATIO 1.5 (1.0-2.1); ALBUMIN 4.1 g/dL (3.5-5.0); ALT/SGPT 33 U/L (21-72); AST/SGOT 52 U/L (17-59); BLOOD UREA NITROGEN 5 mg/dL (9-20); CALCIUM 8.8 mg/dl (8.6-10.4); GFR NON-AFRICAN AMERICAN > 60
[2018-06-09] MEDS ORDERED: Sodium Chloride 0.9% 1,000 ML IV ONE ×2 (02:45→05:04)
[2018-06-09 06:24] LABS: BLOOD UREA NITROGEN 4 mg/dL (9-20); CALCIUM 8.3 mg/dl (8.6-10.4); GFR NON-AFRICAN AMERICAN > 60
[2018-06-09 06:33] VITALS: BP 143/81; PULSE 91; RESP 20; TEMP 98.3
[2018-06-09 06:36] VITALS: O2SAT 100
== END 2018-06-09 06:46 | disposition home or self-care (01) ==
LOC: C.ER 21:00
DX: M79.671 Pain in right foot (principal); M79.672 Pain in left foot; Z59.0 Homelessness
CPT/HCPCS: 80053; 83735; 84100; 85025; 96360; 96361; 99285; G0480; J7030

== ENCOUNTER 2018-06-09 23:53 | Emergency (ER) | payer SELFPAY ==
[2018-06-09 23:53] VITALS: BMI 25.8
--- NOTE | 2018-06-10 00:24 | C.PDOC ---
History Of Present Illness 42 year old male is brought to the ED by EMS for alcohol intoxication. Patient admits to drinking alcohol today, requesting a place to sleep and spend the night. Patient denies SI/HI, hallucinations, CP, SOB, injury, fall, trauma. Time Seen by Provider: 06/10/18 00:23 Chief Complaint (Nursing): Substance Abuse History Per: Patient, EMS History/Exam Limitations: intoxication Onset/Duration Of Symptoms: Hrs Current Symptoms Are (Timing): Still Present Suicide/Self Injury Attempted (Context): None Modifying Factor(s): Alcohol Associated Symptoms: denies: Depression, Suicidal Thoughts, Suicidal Plan Recent travel outside of the [place]: No Additional History Per: Patient, EMS Past Medical History Reviewed: Historical Data, Nursing Documentation, Vital Signs - Medical History PMH: Anxiety, Arthritis (b/l ankle), Depression, Fractures (left leg), Seizures (alcohol related) Denies: Diabetes, Hepatitis, HIV, HTN, Chronic Kidney Disease, Sexually Transmitted Disease Surgical History: No Surg Hx Denies: Appendectomy - [facility] Procedures ALCOHOL DETOXIFICATION (10/30/14) APPLICATION OF SPLINT (03/31/13) CLOSURE SKIN & SUBCUTANEOUS NEC (10/16/14) DETOXIFICATION SERVICES FOR SUBSTANCE ABUSE TREATMENT (08/16/16) INDIV POULTRY FIELD SERVICE TECHNICIAN FOR SUBSTANCE ABUSE TREATMENT, PSYCHOEDUCATION (08/16/16) INDIV POULTRY FIELD SERVICE TECHNICIAN FOR SUBSTANCE ABUSE, COGNITIVE BEHAVIORAL (08/16/16) INDIVID PSYCHOTHERAP NEC (10/14/14) INJECT/INFUSE NEC (09/30/14) TETANUS TOXOID ADMINIST (10/16/14) Family History: States: Unknown Family Hx - Social History Hx Tobacco Use: Yes (heavy smoker) Hx Alcohol Use: Yes Hx Substance Use: No - Immunization History Hx Tetanus Toxoid Vaccination: No Hx Influenza Vaccination: Yes (2017) Hx Pneumococcal Vaccination: Yes Review Of Systems Constitutional: Negative for: Fever, Chills Cardiovascular: Negative for: Chest Pain Respiratory: Negative for: Shortness of Breath Gastrointestinal: Negative for: Nausea, Vomiting, Abdominal Pain Skin: Negative for: Rash Neurological: Negative for: Weakness, Numbness Psych: Negative for: Depression, Suicidal ideation Physical Exam - Physical Exam Appears: Non-toxic, No Acute Distress, Unkempt, Other (poor hygiene) Skin: Warm, Dry Head: Normacephalic Eye(s): bilateral: Normal Inspection Oral Mucosa: Moist Neck: Supple Chest: Symmetrical Cardiovascular: Rhythm Regular Respiratory: No Rales, No Rhonchi, No Wheezing Gastrointestinal/Abdominal: Soft, No Tenderness, No Guarding, No Rebound Extremity: Bilateral: Atraumatic, Normal ROM, Other (chronic venous stasis changes) Neurological/Psych: Oriented x3, Normal Speech, Normal Cognition Gait: Steady ED Course And Treatment O2 Sat by Pulse Oximetry: 100 Pulse Ox Interpretation: Normal Reevaluation Time: 05:16 Reassessment Condition: Improved Disposition Counseled Patient/Family Regarding: Studies Performed, Diagnosis - Disposition Referrals: [facility] at [facility] [Outside] Disposition: HOME/ ROUTINE Disposition Time: 00:24 Condition: FAIR Instructions: Alcohol Abuse and Alcoholism (DC) Forms: [employer] (Liberian) - Clinical Impression Clinical Impression: Alcohol abuse with intoxication - Scribe Statement The provider has reviewed the documentation as recorded by the Scribe Cornell Herrmann All medical record entries made by the Scribe were at my direction and personally dictated by me. I have reviewed the chart and agree that the record a ccurately reflects my personal performance of the history, physical exam, medical decision making, and the department course for this patient. I have also personally directed, reviewed, and agree with the discharge instructions and disposition.
[2018-06-10 01:08] VITALS: TEMP 97.6; O2SAT 100
[2018-06-10 05:18] VITALS: BP 104/65; PULSE 99; RESP 20
== END 2018-06-10 06:05 | disposition home or self-care (01) ==
LOC: C.ER 23:53
DX: F10.129 Alcohol abuse with intoxication, unspecified (principal); Y90.9 Presence of alcohol in blood, level not specified

== ENCOUNTER 2018-10-13 12:55 | Emergency (ER) | payer MEDICAID ==
[2018-10-13 12:55] VITALS: BMI 25.0
[2018-10-13 13:04] VITALS: BP 95/58; PULSE 82; RESP 20; TEMP 97.7; O2SAT 99
--- NOTE | 2018-10-13 14:22 | C.PDOC ---
History Of Present Illness 43 y/o male brought to ER by ambulance for evaluation of ETOH intoxication after he was found in hallway. Patient states that he was drinking. Patient reports that he felt weak and he was afraid he was going to have seizure. So, he stopped drinking. Currently, patient denies having suicidal ideation, homcidal ideation, fever,chills,CP,SOB, nausea, and vomiting. Time Seen by Provider: 10/13/18 13:19 Chief Complaint (Nursing): Substance Abuse History Per: Patient History/Exam Limitations: no limitations Past Medical History Reviewed: Historical Data, Nursing Documentation, Vital Signs Vital Signs: Last Vital Signs Temp 97.7 F 10/13/18 13:04 Pulse 82 10/13/18 13:04 Resp 20 10/13/18 13:04 BP 95/58 L 10/13/18 13:04 Pulse Ox 99 10/13/18 13:04 - Medical History PMH: Anxiety, Arthritis, Depression, Fractures (left leg), Seizures (alcohol related) Denies: Diabetes, Hepatitis, HIV, HTN, Chronic Kidney Disease, Sexually Transmitted Disease Surgical History: Denies: Appendectomy - [facility] Procedures ALCOHOL DETOXIFICATION (10/30/14) APPLICATION OF SPLINT (03/31/13) CLOSURE SKIN & SUBCUTANEOUS NEC (10/16/14) DETACHMENT AT LEFT 2ND TOE, HIGH, OPEN APPROACH (07/25/18) DETOXIFICATION SERVICES FOR SUBSTANCE ABUSE TREATMENT (08/16/16) GROUP PSYCHOTHERAPY (08/16/18) INDIV NUCLEAR MEDICINE OFFICER FOR SUBSTANCE ABUSE TREATMENT, PSYCHOEDUCATION (08/16/16) INDIV NUCLEAR MEDICINE OFFICER FOR SUBSTANCE ABUSE, COGNITIVE BEHAVIORAL (08/16/16) INDIV PSYCHOTHERAPY FOR SUBSTANCE ABUSE, MOTIVATION ENHANCE (08/16/18) INDIVID PSYCHOTHERAP NEC (10/14/14) INDIVIDUAL PSYCHOTHERAPY, SUPPORTIVE (08/16/18) INJECT/INFUSE NEC (09/30/14) TETANUS TOXOID ADMINIST (10/16/14) Family History: States: No Known Family Hx - Social History Hx Tobacco Use: Yes (heavy smoker) Hx Alcohol Use: Yes Hx Substance Use: No - Immunization History Hx Tetanus Toxoid Vaccination: No Hx Influenza Vaccination: Yes (2017) Hx Pneumococcal Vaccination: Yes Review Of Systems Except As Marked, All Systems Reviewed And Found Negative. Constitutional: Negative for: Fever, Chills Psych: Negative for: Suicidal ideation Physical Exam - Physical Exam Appears: No Acute Distress, Other (awake,alert) Skin: Normal Color, Warm, Dry, Other (no visible injuries) Head: Atraumatic, Normacephalic Eye(s): bilateral: Normal Inspection Nose: Normal Oral Mucosa: Moist Neck: Supple Chest: Symmetrical Cardiovascular: Rhythm Regular Respiratory: Normal Breath Sounds, No Rales, No Rhonchi, No Wheezing Gastrointestinal/Abdominal: Normal Exam, Soft, No Tenderness, No Guarding, No Rebound Neurological/Psych: Oriented x3, Normal Speech ED Course And Treatment O2 Sat by Pulse Oximetry: 99 (RA) Pulse Ox Interpretation: Normal Progress Note: Patient last seen sleeping quietly. 4PM stretcher empty. Disposition - Disposition Disposition: ELOPEMENT - ER ONLY Disposition Time: 16:43 Condition: STABLE - Clinical Impression Clinical Impression: Alcohol abuse with uncomplicated intoxication - Scribe Statement The provider has reviewed the documentation as recorded by the Kat Sharma Provider Attestation: All medical record entries made by the Kat were at my direction and personally dictated by me. I have reviewed the chart and agree that the record accurately reflects my personal performance of the history, physical exam, medical decision making, and the department course for this patient. I have also personally directed, reviewed, and agree with the discharge instructions and disposition.
== END 2018-10-13 13:19 | disposition left against medical advice (07) ==
LOC: C.ER 12:55
DX: F10.120 Alcohol abuse with intoxication, uncomplicated (principal); Y90.9 Presence of alcohol in blood, level not specified

== ENCOUNTER 2018-11-21 15:35 | Emergency (ER) | payer MEDICAID, OTHER ==
[2018-11-21 15:35] VITALS: BMI 20.1
[2018-11-21 15:51] VITALS: BP 109/61; PULSE 92; TEMP 97.8; O2SAT 96
--- NOTE | 2018-11-21 17:57 | C.PDOC ---
History Of Present Illness 43 year old male was brought to ED via EMS for public intoxication. Patient was found outside with an open alcohol container. Patient has no physical complaints. He denies suicidal ideation and homicidal ideation. Time Seen by Provider: 11/21/18 15:59 Chief Complaint (Nursing): Substance Abuse History Per: Patient, EMS History/Exam Limitations: intoxication Onset/Duration Of Symptoms: Hrs (3) Current Symptoms Are (Timing): Still Present Suicide/Self Injury Attempted (Context): None Modifying Factor(s): Alcohol Associated Symptoms: denies: Suicidal Thoughts, Suicidal Plan Past Medical History Reviewed: Historical Data, Nursing Documentation, Vital Signs Vital Signs: Last Vital Signs Temp 97.8 F 11/21/18 15:49 Pulse 92 H 11/21/18 15:49 Resp 20 11/21/18 15:49 BP 109/61 11/21/18 15:49 Pulse Ox 96 11/21/18 15:49 Primary Care Provider: FAMILY PROVIDER,NO - Medical History PMH: Anxiety, Arthritis, Depression, Fractures (left leg), Seizures (alcohol related) Denies: Diabetes, Hepatitis, HIV, HTN, Chronic Kidney Disease, Sexually Transmitted Disease Surgical History: Denies: Appendectomy - [facility] Procedures ALCOHOL DETOXIFICATION (10/30/14) APPLICATION OF SPLINT (03/31/13) CLOSURE SKIN & SUBCUTANEOUS NEC (10/16/14) DETACHMENT AT LEFT 2ND TOE, HIGH, OPEN APPROACH (07/25/18) DETOXIFICATION SERVICES FOR SUBSTANCE ABUSE TREATMENT (08/16/16) GROUP PSYCHOTHERAPY (08/16/18) INDIV ROENTGENOLOGIST FOR SUBSTANCE ABUSE TREATMENT, PSYCHOEDUCATION (08/16/16) INDIV ROENTGENOLOGIST FOR SUBSTANCE ABUSE, COGNITIVE BEHAVIORAL (08/16/16) INDIV PSYCHOTHERAPY FOR SUBSTANCE ABUSE, MOTIVATION ENHANCE (08/16/18) INDIVID PSYCHOTHERAP NEC (10/14/14) INDIVIDUAL PSYCHOTHERAPY, SUPPORTIVE (08/16/18) INJECT/INFUSE NEC (09/30/14) TETANUS TOXOID ADMINIST (10/16/14) Family History: States: Unknown Family Hx - Social History Hx Tobacco Use: Yes (heavy smoker) Hx Alcohol Use: Yes Hx Substance Use: Yes - Immunization History Hx Tetanus Toxoid Vaccination: No Hx Influenza Vaccination: Yes (2017) Hx Pneumococcal Vaccination: Yes Review Of Systems Except As Marked, All Systems Reviewed And Found Negative. Constitutional: Positive for: Other (intoxicated) Physical Exam - Physical Exam Appears: Non-toxic, No Acute Distress, Unkempt, Other (walking around, tolerating food tray) Skin: Normal Color, Warm, Dry Head: Atraumatic, Normacephalic Eye(s): bilateral: Normal Inspection, PERRL, EOMI, Other (conjunctiva clear) Oral Mucosa: Moist Chest: Symmetrical Cardiovascular: Rhythm Regular, No Murmur Respiratory: No Rales, No Rhonchi, No Wheezing, Other (Good air movement, Lungs CTA bilaterally) Gastrointestinal/Abdominal: Soft, No Tenderness, No Distention, No Guarding, No Rebound Extremity: Capillary Refill (<2 seconds) Extremity: Bilateral: Atraumatic, Normal Color And Temperature, Normal ROM, Other (no cyanosis or edema) Pulses: Left Dorsalis Pedis: Normal, Right Dorsalis Pedis: Normal Neurological/Psych: Normal Motor, Normal Sensation, Other (awake, alert, appropriate) Gait: Steady ED Course And Treatment O2 Sat by Pulse Oximetry: 96 (in RA) Pulse Ox Interpretation: Normal Medical Decision Making Medical Decision Making: Impression: 43 year old male was brought to ED via EMS for public intoxication. Initial Plan: Glucose POC Disposition Counseled Patient/Family Regarding: Diagnosis, Need For Followup - Disposition Referrals: [facility] [Outside] [facility] at [facility] [Outside] Disposition: HOME/ ROUTINE Disposition Time: 17:56 Condition: IMPROVED Instructions: Alcohol Abuse and Alcoholism (DC) Forms: [facility] (Romansh), General Discharge Instructions - Clinical Impression Clinical Impression: Alcohol intoxication - Scribe Statement The provider has reviewed the documentation as recorded by the Scribe (Amita Alvarez) All medical record entries made by the Scribe were at my direction and per sonally dictated by me. I have reviewed the chart and agree that the record accurately reflects my personal performance of the history, physical exam, medical decision making, and the department course for this patient. I have also personally directed, reviewed, and agree with the discharge instructions and disposition.
[2018-11-21 18:15] VITALS: RESP 18
== END 2018-11-21 18:15 | disposition home or self-care (01) ==
LOC: C.ER 15:35
DX: F10.129 Alcohol abuse with intoxication, unspecified (principal)

== ENCOUNTER 2018-11-22 14:14 | Emergency (ER) | payer OTHER ==
[2018-11-22 14:15] VITALS: BMI 20.1
[2018-11-22 15:00] VITALS: BP 104/64; PULSE 99; RESP 18; TEMP 98.3; O2SAT 96
--- NOTE | 2018-11-22 15:14 | C.PDOC ---
History Of Present Illness 43-year-old male is brought to the ED by ambulance for evaluation of acute alcohol intoxication. Patient is familiar to this ED and has had many prior visits for the same. Patient does not offer any complaints at this time. Time Seen by Provider: 11/22/18 14:29 Chief Complaint (Nursing): Substance Abuse History Per: Patient History/Exam Limitations: no limitations Onset/Duration Of Symptoms: Hrs Current Symptoms Are (Timing): Still Present Modifying Factor(s): Alcohol Involuntary Hold By: None Recent travel outside of the [place]: No Additional History Per: Patient Past Medical History Reviewed: Historical Data, Nursing Documentation, Vital Signs Vital Signs: Last Vital Signs Temp 98.3 F 11/22/18 14:57 Pulse 99 H 11/22/18 14:57 Resp 18 11/22/18 14:57 BP 104/64 11/22/18 14:57 Pulse Ox 96 11/22/18 14:57 Primary Care Provider: FAMILY PROVIDER,NO - Medical History PMH: Anxiety, Arthritis, Depression, Fractures (left leg), Seizures (alcohol related) Denies: Diabetes, Hepatitis, HIV, HTN, Chronic Kidney Disease, Sexually Transmitted Disease Surgical History: No Surg Hx Denies: Appendectomy - [facility] Procedures ALCOHOL DETOXIFICATION (10/30/14) APPLICATION OF SPLINT (03/31/13) CLOSURE SKIN & SUBCUTANEOUS NEC (10/16/14) DETACHMENT AT LEFT 2ND TOE, HIGH, OPEN APPROACH (07/25/18) DETOXIFICATION SERVICES FOR SUBSTANCE ABUSE TREATMENT (08/16/16) GROUP PSYCHOTHERAPY (08/16/18) INDIV GAS COMPRESSOR OPERATOR FOR SUBSTANCE ABUSE TREATMENT, PSYCHOEDUCATION (08/16/16) INDIV GAS COMPRESSOR OPERATOR FOR SUBSTANCE ABUSE, COGNITIVE BEHAVIORAL (08/16/16) INDIV PSYCHOTHERAPY FOR SUBSTANCE ABUSE, MOTIVATION ENHANCE (08/16/18) INDIVID PSYCHOTHERAP NEC (10/14/14) INDIVIDUAL PSYCHOTHERAPY, SUPPORTIVE (08/16/18) INJECT/INFUSE NEC (09/30/14) TETANUS TOXOID ADMINIST (10/16/14) Family History: States: Unknown Family Hx - Social History Hx Tobacco Use: Yes (heavy smoker) Hx Alcohol Use: Yes Hx Substance Use: Yes - Immunization History Hx Tetanus Toxoid Vaccination: No Hx Influenza Vaccination: Yes (2016) Hx Pneumococcal Vaccination: Yes Review Of Systems Psych: Positive for: Other (EtOH intoxication ) Physical Exam - Physical Exam Appears: Non-toxic, No Acute Distress, Other (visibly intoxicated ) Skin: Normal Color, Warm, Dry Head: Atraumatic, Normacephalic Oral Mucosa: Moist, Other (alcohol on breath ) Neck: Supple Chest: Symmetrical, No Deformity, No Tenderness Cardiovascular: Rhythm Regular Respiratory: No Accessory Muscle Use Extremity: Normal ROM Neurological/Psych: Other (arousable to touch and verbal stimuli ) ED Course And Treatment O2 Sat by Pulse Oximetry: 96 (on RA) Pulse Ox Interpretation: Normal Medical Decision Making Medical Decision Making: observe din er 2 hours clincaily sober. in nad stable for dc. Disposition - Disposition Disposition: HOME/ ROUTINE Disposition Time: 15:00 Condition: STABLE Forms: [employer] (Mongolian) - Clinical Impression Clinical Impression: Alcohol intoxication - Scribe Statement The provider has reviewed the documentation as recorded by the Scribe ([place]eno) Provider Attestation: All medical record entries made by the Scribe were at my direction and personally dictated by me. I have reviewed the chart and agree that the record accurately reflects my personal performance of the history, physical exam, medical decision making, and the department course for this patient. I have also personally directed, reviewed, and agree with the discharge instructions and disposition.
--- NOTE | 2018-11-22 15:19 | C.PDOC ---
Time Seen by Provider: 11/22/18 14:29 Chief Complaint (Nursing): Substance Abuse Past Medical History Vital Signs: Last Vital Signs Temp 98.3 F 11/22/18 14:57 Pulse 99 H 11/22/18 14:57 Resp 18 11/22/18 14:57 BP 104/64 11/22/18 14:57 Pulse Ox 96 11/22/18 14:57 Primary Care Provider: FAMILY PROVIDER,NO - Medical History PMH: Anxiety, Arthritis, Depression, Fractures (left leg), Seizures (alcohol related) Denies: Diabetes, Hepatitis, HIV, HTN, Chronic Kidney Disease, Sexually Transmitted Disease Surgical History: Denies: Appendectomy - [facility] Procedures ALCOHOL DETOXIFICATION (10/30/14) APPLICATION OF SPLINT (03/31/13) CLOSURE SKIN & SUBCUTANEOUS NEC (10/16/14) DETACHMENT AT LEFT 2ND TOE, HIGH, OPEN APPROACH (07/25/18) DETOXIFICATION SERVICES FOR SUBSTANCE ABUSE TREATMENT (08/16/16) GROUP PSYCHOTHERAPY (08/16/18) INDIV SUPERVISOR ROUGH END FOR SUBSTANCE ABUSE TREATMENT, PSYCHOEDUCATION (08/16/16) INDIV SUPERVISOR ROUGH END FOR SUBSTANCE ABUSE, COGNITIVE BEHAVIORAL (08/16/16) INDIV PSYCHOTHERAPY FOR SUBSTANCE ABUSE, MOTIVATION ENHANCE (08/16/18) INDIVID PSYCHOTHERAP NEC (10/14/14) INDIVIDUAL PSYCHOTHERAPY, SUPPORTIVE (08/16/18) INJECT/INFUSE NEC (09/30/14) TETANUS TOXOID ADMINIST (10/16/14) Family History: States: Unknown Family Hx - Social History Hx Tobacco Use: Yes (heavy smoker) Hx Alcohol Use: Yes Hx Substance Use: Yes - Immunization History Hx Tetanus Toxoid Vaccination: No Hx Influenza Vaccination: Yes (2016) Hx Pneumococcal Vaccination: Yes ED Course And Treatment O2 Sat by Pulse Oximetry: 96 Disposition - Disposition Disposition: HOME/ ROUTINE Disposition Time: 15:11 Condition: STABLE - Clinical Impression Clinical Impression: Alcohol intoxication
== END 2018-11-22 15:45 | disposition home or self-care (01) ==
LOC: C.ER 14:14
DX: F10.129 Alcohol abuse with intoxication, unspecified (principal); Y90.9 Presence of alcohol in blood, level not specified

== ENCOUNTER 2018-11-24 18:53 | Emergency (ER) | payer OTHER, MEDICAID | END 2018-11-25 05:44 | disposition home or self-care (01) | LOC: C.ER 18:53 ==